=== PATIENT | male | born 1975 | race Caucasian/White ===

== ENCOUNTER 2019-02-04 13:17 | Inpatient (IN) | payer OTHER ==
--- NOTE | 2019-02-04 13:41 | PHYS DOC ---
Past History Past Medical History: Other Additional Past Medical Histor: cerebral palsy Smoking: Non-smoker Alcohol Use: None Drug Use: None Adult General Chief Complaint Chief Complaint: EARACHE/EAR PAIN HPI HPI Patient is a 43-year-old male presents with right ear pain. This started approximately a week ago. He finished up a course of azithromycin for this without any improvement. He was sent from the urgent care today due to wheezing and lower than usual oxygen saturation. Video Manager reports that he does have some increased work of breathing. 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 History is limited from the patient due to this. There has been no fever at home.[] Review of Systems Review of Systems Constitutional: Denies fever or chills [] Eyes: Denies change in visual acuity, redness, or eye pain [] HENT: Denies nasal congestion or sore throat [] Respiratory: Denies cough, wheezing is present,[] Cardiovascular: No chest pain or palpitations[] GI: Denies abdominal pain, nausea, vomiting, bloody stools or diarrhea [] : Denies dysuria or hematuria [] Musculoskeletal: Denies back pain or joint pain [] Integument: Denies rash or skin lesions [] Neurologic: Denies headache, focal weakness or sensory changes [] Endocrine: Denies polyuria or polydipsia [] All other systems were reviewed and found to be within normal limits, except as documented in this note. Physical Exam Physical Exam Constitutional: Well developed, well nourished, no acute distress, non-toxic appearance. [] HENT: Normocephalic, atraumatic, bilateral external ears normal, right TM has some fluid, no canal edema. Left TM and canal are normal. Oropharynx moist, no oral exudates, nose normal. [] Eyes: PERRLA, EOMI, conjunctiva normal, no discharge. [] Neck: Normal range of motion, no tenderness, supple, no stridor. [] Cardiovascular:Heart rate regular rhythm, no murmur [] Lungs & Thorax: Bilateral breath scattered wheezes, no retractions noted[] Abdomen: Bowel sounds normal, soft, no tenderness, no masses, no pulsatile mass es. [] Skin: Warm, dry, no erythema, no rash. [] Back: No tenderness, no CVA tenderness. [] Extremities: No tenderness, no cyanosis, no clubbing, ROM intact, no edema. [] Neurologic: Alert, no focal deficits noted. [] Psychologic: Affect normal per qa engineer, mood normal per qa engineer. [] EKG EKG [] Radiology/Procedures Radiology/Procedures PROCEDURE: PORTABLE CHEST 1V Single view portable chest COMPARISON: March 24, 2013 images without report FINDINGS: Very low lung volumes. This likely accentuates the cardiac silhouette size. Mixed infiltrates identified in both lungs, greatest in the right upper lobe. Small pleural effusions, greater on the right. No evidence of pneumothorax. Bones appear grossly intact. IMPRESSION: Bilateral pulmonary infiltrates and/or edema.[] Course & Med Decision Making Course & Med Decision Making Pertinent Labs and Imaging studies reviewed. (See chart for details) ED course: Patient arrived, was placed in bed, and tolerated exam well. After the return of the initial imaging showing multilobar pneumonia, IV access was es tablished, IV fluids and antibiotics were administered. Laboratory testing was sent for analysis. He was given IV fluids. Consultation was made with hospitalist service for admission. He was admitted in improved condition. Medical decision making: Patient with multilobar pneumonia post recent azithromycin therapy. Elevated lactate. Admitting to the ICU for further evaluation and treatment. With holding azithromycin for community-acquired pneumonia since he just finished a course of this.[] Dragon Disclaimer Dragon Disclaimer This electronic medical record was generated, in whole or in part, using a voice recognition dictation system. Departure Departure: Impression: Primary Impression: Pneumonia Additional Impressions: Elevated lactic acid level Cerebral palsy Disposition: ADMITTED INPATIENT Admitting Physician: Celia Leos Condition: IMPROVED Problem Qualifiers Primary Impression: Pneumonia Pneumonia type: due to unspecified organism Laterality: unspecified laterality Lung location: unspecified part of lung Qualified Codes: J18.9 - Pneumonia, unspecified organism Additional Impressions: Cerebral palsy Cerebral palsy type: unspecified type Qualified Codes: G80.9 - Cerebral palsy, unspecified ISABEL EUBANKS DO Feb 04, 2019 13:40
[2019-02-04] MEDS ORDERED: IPRATRPIUM/ALBUTEROL 0.5/2.5MG 3 ML NEBU. NEB ONE (13:45)
--- NOTE | 2019-02-04 14:00 | RAD ---
Single view portable chest COMPARISON: March 24, 2013 images without report FINDINGS: Very low lung volumes. This likely accentuates the cardiac silhouette size. Mixed infiltrates identified in both lungs, greatest in the right upper lobe. Small pleural effusions, greater on the right. No evidence of pneumothorax. Bones appear grossly intact. IMPRESSION: Bilateral pulmonary infiltrates and/or edema. Electronically signed by: Manuelito Johnson MD (02/04/2019 1:57 PM) [facility]
[2019-02-04] MEDS ORDERED: cefTRIAXone SODIUM 1 GM VIAL ONE (14:39)
[2019-02-04] MEDS ORDERED: IV NORMAL SALINE 50ML 50 ML ONE (14:39)
[2019-02-04 14:46] LABS: BASO # 0.1 x10^3/uL (0.0-0.2); BASO % 1 % (0-3); EOS # 0.2 x10^3/uL (0.0-0.7); EOS % 2 % (0-3); HEMOGLOBIN 16.1 g/dL (13.0-17.5); LYMPH # 3.8 x10^3/uL (1.0-4.8); LYMPH % 34 % (24-48); MEAN CORPUSCULAR HEMOGLOBIN 31 pg (25-35); MEAN CORPUSCULAR HGB CONC 34 g/dL (31-37); MEAN CORPUSCULAR VOLUME 93 fL (79-100); MONO % 9 % (0-9); NEUT % 54 % (31-73); PLATELET COUNT 347 x10^3/uL (140-400); RED BLOOD COUNT 5.17 x10^6/uL (4.30-5.70); RED CELL DISTRIBUTION WIDTH 13.3 % (11.5-14.5); WHITE BLOOD COUNT 11.1 x10^3/uL (4.0-11.0)
[2019-02-04 15:03] LABS: ALBUMIN 3.7 g/dL (3.4-5.0); ALBUMIN/GLOBULIN RATIO 0.8 (1.0-1.7); CALCIUM 9.5 mg/dL (8.5-10.1); CREATININE 0.7 mg/dL (0.7-1.3); GFR 124.3; POTASSIUM 4.7 mmol/L (3.5-5.1); TOTAL BILIRUBIN 0.2 mg/dL (0.2-1.0); TOTAL PROTEIN 8.2 g/dL (6.4-8.2)
[2019-02-04] MEDS: IV NORMAL SALINE 1,000ML 1,000 ML IV SCH ×2 (15:24→17:40)
[2019-02-04] MEDS ORDERED: IV NORMAL SALINE 1,000ML 1,000 ML IV ONE (15:30)
[2019-02-04] MEDS ORDERED: ONDANSETRON PF 4 MG/2 ML VIAL. IV PRN ×2 (15:30→17:15)
[2019-02-04] MEDS ORDERED: ACETAMINOPHEN 325 MG TABLET PO PRN ×2 (15:30→17:15)
[2019-02-04] MEDS ORDERED: PARO20TA99 PO (15:55)
[2019-02-04] MEDS ORDERED: BACL20TA PO (15:55)
[2019-02-04] MEDS ORDERED: ZOLP5TAB PO (15:55)
[2019-02-04] MEDS ORDERED: MULT1TAB52 PO (15:55)
[2019-02-04] MEDS ORDERED: TIZA4TAB8 PO (15:55)
[2019-02-04] MEDS ORDERED: CRAN200C2 PO (15:55)
[2019-02-04] MEDS ORDERED: CLON0.5T PO (15:55)
[2019-02-04] MEDS ORDERED: FISH12002 PO (15:55)
[2019-02-04] MEDS: IPRATRPIUM/ALBUTEROL 0.5/2.5MG 3 ML NEBU. NEB SCH ×3 (16:00→20:36)
[2019-02-04] MEDS ORDERED: METOCLOPRAMIDE HCL 10 MG/2 ML VIAL. IV PRN (17:15)
[2019-02-04] MEDS ORDERED: FLUT9.9S NS (17:18)
[2019-02-04] MEDS ORDERED: IPRATRPIUM/ALBUTEROL 0.5/2.5MG 3 ML NEBU. NEB SCH (17:30)
[2019-02-04 18:15] VITALS: BP 150/102
[2019-02-04 20:15] VITALS: BP 140/68
--- NOTE | 2019-02-04 20:21 | HP ---
ADMIT DATE: 02/04/2019 HISTORY OF PRESENT ILLNESS: The patient is a 43-year-old male patient who apparently presented with right ear pain. Pain started approximately a week ago, he finished a course of azithromycin for this without any improvement. He was sent from the urgent care today due to wheezing and lower than usual oxygen saturation. Job Hand reports that he does have some increased work of breathing. 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 History is limited from the patient due to this; however, there has been no documented fever at home. He apparently is at total care. He spends most of the day in his chair, but he sleeps at night time in his bed. He requires assistance with all his activities of daily living including feeding; however, he has ability to make his needs known. He is incontinent of bowel and bladder. I did ask his parents whether he has any episode of choking and they said, they have not noticed any of that. He was evaluated in the Emergency Room. His lab work showed, he has mild leukocytosis with a white cell count of 11,000. His chemistry showed that he has lactic acidosis with lactic acid of 2.8, slightly elevated liver enzymes with elevated AST, ALT. His chest x-ray showed that he has very low lung volume. This likely extended with the cardiac silhouette. He has mixed infiltrate identified in both lungs, greatest in the right upper lobe, small pleural effusions, greater on the right. No evidence of pneumothorax. Bones appear grossly intact. He has bilateral pulmonary infiltrate and/or edema. He was admitted and was given 2 liters of fluid and started on IV Rocephin and was continued on his other medications. PAST MEDICAL HISTORY: Significant for cerebral palsy. PAST SURGICAL HISTORY: Unremarkable. FAMILY HISTORY: Noncontributory. 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 He has total care for all his activities, his ADLs including feeding. He spends most of the time in his chair; however, he sleeps in his bed. He is able to make his needs known. However, he is incontinent mostly at night time. According to his mother, he does not smoke, drink alcohol or use any recreational drugs. REVIEW OF SYSTEMS: Unobtainable. The patient is nonverbal. ALLERGIES: HE IS ALLERGIC TO PENICILLIN. MEDICATIONS: He is currently on following medications: He is on tizanidine 4 mg twice a day, baclofen 20 mg twice a day, clonazepam 0.5 mg daily. He is on paroxetine 20 mg daily, Ambien 10 mg at bedtime, Flonase 2 sprays to each nostril daily, multivitamin 1 tablet once a day, cranberry extract 200 mg daily, fish oil, omega-3 1200 mg daily. PHYSICAL EXAMINATION: GENERAL: On examining him, he is somewhat restless ____ and somewhat tachypneic, but there is no pallor, jaundice, cyanosis, or thyromegaly. No jugular venous distension. No limb edema. VITAL SIGNS: His heart rate was 106, blood pressure was 150/100, temperature was 97.2, respiratory rate was 25, and oxygen saturation was 93% on room air. HEAD, EYES, NOSE AND THROAT: Normocephalic, atraumatic. NECK: Supple. HEART: Showed normal first and second heart sounds with no gallop, rub or murmur. CHEST: Equal bilateral reduced chest expansion, reduced air entry, vesicular sounds. I really could not appreciate any wheezing or crepitation or rhonchi. ABDOMEN: Distended, soft, nontender. No guarding or rigidity. No organomegaly. All hernial orifice intact. Bowel sounds normal. NEUROLOGIC: He has cerebral palsy. He is nonverbal. All his cranial nerves seem to be grossly intact. EXTREMITIES: He moves his extremities without difficulty, but he is unable to sit on his own and he is supported in his chair or his bed. He has a caregiver taking care of him 24 hours a day, seven days a week. LABORATORY DATA: On arrival showed a white cell count of 11,100, hemoglobin 16, hematocrit 48, MCV 93, and platelet count of 347,000 with normal manual differential. His chemistry showed a serum sodium 143, potassium 4.7, chloride 102, bicarbonate 34, anion gap of 7, BUN 16, creatinine 0.7, estimated GFR was 124 mL per minute. His glucose was 101. Lactic acid was 2.8, calcium was 9.5. Total bilirubin and alkaline phosphatase were normal. AST, ALT are elevated. His beta-natriuretic peptide was 16 and total protein was 8.2, albumin was 3.7 and his chest x-ray showed that he has very low lung volumes. This likely extenuate the cardiac silhouette, size, mixed infiltrate identified in both lungs, greatest in the right upper lobe, small pleural effusion, greater on the right. No evidence of pneumothorax. Bones appears grossly intact. The patient has pulmonary infiltrate and/or edema. PLAN: My plan is to continue to switch him to meropenem as well as Levaquin to cover possible aspiration pneumonia and anaerobes and atypicals as he came from home. MARCE LUNA MD DR: CYN/ana JOB#: [id number] / [id number]
[2019-02-04] MEDS: MEROPENEM 1 GM in IV NORMAL SALINE 100ML 100 ML IV SCH (21:28)
[2019-02-04] MEDS: LACTOBACILLUS RHAMNOSUS GG 1 CAPSULE. PO SCH (21:28)
[2019-02-04] MEDS: tiZANidine 4 MG TABLET. PO SCH (21:29)
[2019-02-04] MEDS: ZOLPIDEM 5 MG TABLET. PO SCH (21:29)
[2019-02-04 23:55] VITALS: BP 106/62
[2019-02-05 02:28] VITALS: BP 113/66
[2019-02-05] MEDS: MEROPENEM 1 GM in IV NORMAL SALINE 100ML 100 ML IV SCH ×3 (05:47→22:22)
[2019-02-05] MEDS: IPRATRPIUM/ALBUTEROL 0.5/2.5MG 3 ML NEBU. NEB SCH ×4 (05:57→20:03)
[2019-02-05 06:51] VITALS: BP 119/66
[2019-02-05 07:16] LABS: BASO # 0.1 x10^3/uL (0.0-0.2); BASO % 1 % (0-3); EOS # 0.1 x10^3/uL (0.0-0.7); EOS % 1 % (0-3); HEMATOCRIT 41.5 % (39.0-53.0); HEMOGLOBIN 13.9 g/dL (13.0-17.5); LYMPH % 26 % (24-48); MEAN CORPUSCULAR HEMOGLOBIN 31 pg (25-35); MEAN CORPUSCULAR HGB CONC 34 g/dL (31-37); MEAN CORPUSCULAR VOLUME 93 fL (79-100); MONO # 1.1 x10^3/uL (0.0-1.1); MONO % 9 % (0-9); NEUT # 7.2 x10^3uL (1.8-7.7); NEUT % 63 % (31-73); PLATELET COUNT 320 x10^3/uL (140-400); RED BLOOD COUNT 4.46 x10^6/uL (4.30-5.70); RED CELL DISTRIBUTION WIDTH 13.3 % (11.5-14.5); WHITE BLOOD COUNT 11.5 x10^3/uL (4.0-11.0)
[2019-02-05] MEDS: IV NORMAL SALINE 1,000ML 1,000 ML IV SCH (07:24)
[2019-02-05 07:31] LABS: ALBUMIN 3.2 g/dL (3.4-5.0); ALBUMIN/GLOBULIN RATIO 0.8 (1.0-1.7); CALCIUM 8.6 mg/dL (8.5-10.1); CREATININE 0.8 mg/dL (0.7-1.3); GFR 106.5; POTASSIUM 4.8 mmol/L (3.5-5.1); TOTAL BILIRUBIN 0.3 mg/dL (0.2-1.0)
[2019-02-05] MEDS: OMEGA-3 FATTY ACIDS/FISH OIL 1,000 MG CAPSULE. PO SCH (08:27)
[2019-02-05] MEDS: LACTOBACILLUS RHAMNOSUS GG 1 CAPSULE. PO SCH ×2 (08:27→20:26)
[2019-02-05] MEDS: clonazePAM 0.5 MG TABLET PO SCH (08:27)
[2019-02-05] MEDS: tiZANidine 4 MG TABLET. PO SCH ×3 (08:28→20:28)
[2019-02-05] MEDS: PARoxetine 20 MG TABLET PO SCH (08:28)
[2019-02-05] MEDS ORDERED: MULTIVITAMIN with MINERAL TABLET. PO SCH (09:00)
[2019-02-05] MEDS: BACLOFEN 20 MG TABLET PO SCH ×2 (11:08→14:49)
[2019-02-05] MEDS: FLUTICASONE 50MCG/NASAL SPRAY 16GM BOTTLE. NS SCH (11:08)
[2019-02-05 12:59] VITALS: BP 124/57
[2019-02-05] MEDS ORDERED: IV NORMAL SALINE 1,000ML 1,000 ML IV SCH (19:30)
[2019-02-05] MEDS: ZOLPIDEM 5 MG TABLET. PO SCH (20:27)
--- NOTE | 2019-02-06 01:10 | PN ---
DATE: 02/05/2019 SUBJECTIVE: The patient is resting, slightly propped up in bed, definitely much more comfortable than yesterday. He apparently did not sleep well last night, but has no more wheezing. Does not seem to be very tachypneic like yesterday. PHYSICAL EXAMINATION: GENERAL: When I saw him, he looked well and was clearly in no apparent respiratory distress. No pallor, jaundice, cyanosis or thyromegaly. No jugular venous distension. No lower limb edema. VITAL SIGNS: His heart rate was 94, blood pressure was 119/66, temperature was 97, respiratory rate was 20, and oxygen saturation was 97% on 2 liters of oxygen. His oxygen dropped down to 92 on room air and when he sleeps he desaturates down to 88%, most likely due to obstructive sleep apnea. HEAD, EYES, EARS, NOSE AND THROAT: Showed normocephalic, atraumatic. NECK: Supple. HEART: Showed normal first and second heart sounds. No gallop, rub or murmur. CHEST: Shows central trachea, equal bilateral expansion, air entry, vesicular sounds. I could not really appreciate any crepitation or rhonchi. ABDOMEN: Distended, soft, nontender. NEUROLOGIC: He is awake, alert. He is nonverbal; however, all his cranial nerves are intact. He moves his upper extremities to much good extent than lower extremities; however, he is mostly chair bound and bed bound. He is total care for all his activities of daily living. His intake over the last 24 hours was 1800, no output was recorded. LABORATORY DATA: Her lab work this morning showed a white cell count still slightly elevated at 11.5, hemoglobin was 13.9, hematocrit 41.5, MCV 93, and platelet count 320,000. His chemistry showed a serum sodium 145, potassium 4.8, chloride 106, bicarbonate 36, anion gap of 3, BUN 15, creatinine 0.8, estimated GFR was 160 mL per minute, his glucose was 102. His lactic acid is down to 1.8. Serum calcium was 8.6. Total bilirubin and alkaline phosphatase normal. AST, ALT slightly elevated. His total protein 7, albumin 3.2. ASSESSMENT: This is a 43-year-old male patient with community-acquired pneumonia. He is unfortunately ALLERGIC TO PENICILLIN and was treated recently with Zithromax for his right otitis media. PLAN: To continue with IV meropenem and Levaquin and so far, all his blood cultures are negative. We will continue with IV antibiotic for now. I will obviously sign out to Dr. Ventura tomorrow and he can decide as to when he is stable enough to be discharged to continue on oral antibiotic. MARCE LUNA MD DR: CYN/ana JOB#: [id number] / [id number]
[2019-02-06] MEDS: IPRATRPIUM/ALBUTEROL 0.5/2.5MG 3 ML NEBU. NEB SCH ×4 (05:32→20:50)
[2019-02-06] MEDS: MEROPENEM 1 GM in IV NORMAL SALINE 100ML 100 ML IV SCH ×3 (05:38→22:08)
[2019-02-06 05:45] VITALS: BP 112/82
[2019-02-06 06:21] LABS: BASO % 0 % (0-3); EOS # 0.2 x10^3/uL (0.0-0.7); EOS % 2 % (0-3); HEMATOCRIT 42.5 % (39.0-53.0); HEMOGLOBIN 14.3 g/dL (13.0-17.5); LYMPH # 2.5 x10^3/uL (1.0-4.8); LYMPH % 27 % (24-48); MEAN CORPUSCULAR HEMOGLOBIN 32 pg (25-35); MEAN CORPUSCULAR HGB CONC 34 g/dL (31-37); MEAN CORPUSCULAR VOLUME 94 fL (79-100); MONO # 0.8 x10^3/uL (0.0-1.1); MONO % 9 % (0-9); NEUT # 5.5 x10^3uL (1.8-7.7); NEUT % 61 % (31-73); PLATELET COUNT 303 x10^3/uL (140-400); RED BLOOD COUNT 4.51 x10^6/uL (4.30-5.70); RED CELL DISTRIBUTION WIDTH 13.6 % (11.5-14.5)
[2019-02-06 06:30] LABS: ALBUMIN 3.2 g/dL (3.4-5.0); ALBUMIN/GLOBULIN RATIO 0.8 (1.0-1.7); CALCIUM 8.6 mg/dL (8.5-10.1); CREATININE 0.7 mg/dL (0.7-1.3); GFR 124.3; MAGNESIUM 2.1 mg/dL (1.8-2.4); POTASSIUM 4.7 mmol/L (3.5-5.1); TOTAL BILIRUBIN 0.4 mg/dL (0.2-1.0); TOTAL PROTEIN 7.1 g/dL (6.4-8.2)
--- NOTE | 2019-02-06 07:46 | PDOC ---
SUBJECTIVE: CC: Wheezing Alert Nonverbal, pt grunts Electro Tech at bedside No obvious respiratory distress OBJECTIVE: Problems: Problems Medical Problems: (1) Cerebral palsy Status: Acute (2) Elevated lactic acid level Status: Acute (3) Pneumonia Status: Acute CXR noted, wbc 9000 Vital Signs: Vital Signs Date Time Temp Pulse Resp B/P (MAP) Pulse Ox O2 Delivery O2 Flow Rate FiO2 02/06/19 05:45 97.7 80 16 112/82 (92) 94 Nasal Cannula 2.0 I & O Intake and Output 02/06/19 06:59 Intake Total 2820 ml Output Total 2 ml Balance 2818 ml Intake Oral 1620 ml IV Total 1200 ml Output Urine Total 2 ml # Voids 5 # Bowel Movements 1 Labs: Laboratory Tests Test 02/04/19 14:22 02/04/19 17:57 02/04/19 18:00 02/05/19 06:35 White Blood Count 11.1 x10^3/uL (4.0-11.0) 11.5 x10^3/uL (4.0-11.0) Red Blood Count 5.17 x10^6/uL (4.30-5.70) 4.46 x10^6/uL (4.30-5.70) Hemoglobin 16.1 g/dL (13.0-17.5) 13.9 g/dL (13.0-17.5) Hematocrit 48.0 % (39.0-53.0) 41.5 % (39.0-53.0) Mean Corpuscular Volume 93 fL (79-100) 93 fL (79-100) Mean Corpuscular Hemoglobin 31 pg (25-35) 31 pg (25-35) Mean Corpuscular Hemoglobin Concent 34 g/dL (31-37) 34 g/dL (31-37) Red Cell Distribution Width 13.3 % (11.5-14.5) 13.3 % (11.5-14.5) Platelet Count 347 x10^3/uL (140-400) 320 x10^3/uL (140-400) Neutrophils (%) (Auto) 54 % (31-73) 63 % (31-73) Lymphocytes (%) (Auto) 34 % (24-48) 26 % (24-48) Monocytes (%) (Auto) 9 % (0-9) 9 % (0-9) Eosinophils (%) (Auto) 2 % (0-3) 1 % (0-3) Basophils (%) (Auto) 1 % (0-3) 1 % (0-3) Neutrophils # (Auto) 6.0 x10^3uL (1.8-7.7) 7.2 x10^3uL (1.8-7.7) Lymphocytes # (Auto) 3.8 x10^3/uL (1.0-4.8) 3.0 x10^3/uL (1.0-4.8) Monocytes # (Auto) 1.0 x10^3/uL (0.0-1.1) 1.1 x10^3/uL (0.0-1.1) Eosinophils # (Auto) 0.2 x10^3/uL (0.0-0.7) 0.1 x10^3/uL (0.0-0.7) Basophils # (Auto) 0.1 x10^3/uL (0.0-0.2) 0.1 x10^3/uL (0.0-0.2) Sodium Level 143 mmol/L (136-145) 145 mmol/L (136-145) Potassium Level 4.7 mmol/L (3.5-5.1) 4.8 mmol/L (3.5-5.1) Chloride Level 102 mmol/L (98-107) 106 mmol/L (98-107) Carbon Dioxide Level 34 mmol/L (21-32) 36 mmol/L (21-32) Anion Gap 7 (6-14) 3 (6-14) Blood Urea Nitrogen 16 mg/dL (8-26) 15 mg/dL (8-26) Creatinine 0.7 mg/dL (0.7-1.3) 0.8 mg/dL (0.7-1.3) Estimated GFR (Cockcroft-Gault) 124.3 106.5 BUN/Creatinine Ratio 23 (6-20) 19 (6-20) Glucose Level 101 mg/dL (70-99) 102 mg/dL (70-99) Lactic Acid Level 2.8 mmol/L (0.4-2.0) 1.8 mmol/L (0.4-2.0) Calcium Level 9.5 mg/dL (8.5-10.1) 8.6 mg/dL (8.5-10.1) Total Bilirubin 0.2 mg/dL (0.2-1.0) 0.3 mg/dL (0.2-1.0) Aspartate Amino Transf (AST/SGOT) 45 U/L (15-37) 43 U/L (15-37) Alanine Aminotransferase (ALT/SGPT) 95 U/L (16-63) 88 U/L (16-63) Alkaline Phosphatase 66 U/L (46-116) 52 U/L (46-116) Troponin I Quantitative < 0.017 ng/mL (0-0.055) PJ-Cpq-G-Type Natriuretic Peptide 16 pg/mL (0-124) Total Protein 8.2 g/dL (6.4-8.2) 7.0 g/dL (6.4-8.2) Albumin 3.7 g/dL (3.4-5.0) 3.2 g/dL (3.4-5.0) Albumin/Globulin Ratio 0.8 (1.0-1.7) 0.8 (1.0-1.7) Nasal Screen MRSA (PCR) Negative (Negative) Test 02/06/19 05:57 White Blood Count 9.0 x10^3/uL (4.0-11.0) Red Blood Count 4.51 x10^6/uL (4.30-5.70) Hemoglobin 14.3 g/dL (13.0-17.5) Hematocrit 42.5 % (39.0-53.0) Mean Corpuscular Volume 94 fL (79-100) Mean Corpuscular Hemoglobin 32 pg (25-35) Mean Corpuscular Hemoglobin Concent 34 g/dL (31-37) Red Cell Distribution Width 13.6 % (11.5-14.5) Platelet Count 303 x10^3/uL (140-400) Neutrophils (%) (Auto) 61 % (31-73) Lymphocytes (%) (Auto) 27 % (24-48) Monocytes (%) (Auto) 9 % (0-9) Eosinophils (%) (Auto) 2 % (0-3) Basophils (%) (Auto) 0 % (0-3) Neutrophils # (Auto) 5.5 x10^3uL (1.8-7.7) Lymphocytes # (Auto) 2.5 x10^3/uL (1.0-4.8) Monocytes # (Auto) 0.8 x10^3/uL (0.0-1.1) Eosinophils # (Auto) 0.2 x10^3/uL (0.0-0.7) Basophils # (Auto) 0.0 x10^3/uL (0.0-0.2) Sodium Level 144 mmol/L (136-145) Potassium Level 4.7 mmol/L (3.5-5.1) Chloride Level 106 mmol/L (98-107) Carbon Dioxide Level 36 mmol/L (21-32) Anion Gap 2 (6-14) Blood Urea Nitrogen 11 mg/dL (8-26) Creatinine 0.7 mg/dL (0.7-1.3) Estimated GFR (Cockcroft-Gault) 124.3 BUN/Creatinine Ratio 16 (6-20) Glucose Level 101 mg/dL (70-99) Calcium Level 8.6 mg/dL (8.5-10.1) Magnesium Level 2.1 mg/dL (1.8-2.4) Total Bilirubin 0.4 mg/dL (0.2-1.0) Aspartate Amino Transf (AST/SGOT) 35 U/L (15-37) Alanine Aminotransferase (ALT/SGPT) 86 U/L (16-63) Alkaline Phosphatase 56 U/L (46-116) Total Protein 7.1 g/dL (6.4-8.2) Albumin 3.2 g/dL (3.4-5.0) Albumin/Globulin Ratio 0.8 (1.0-1.7) Physical Exam: HEENT:PERRLA Neck supple Lungs: good breath sounds CV RRR Abdomen: Soft. no guarding nor rebound tenderness Ext: contractures Neuro: Spastic paraparesis, pt is non verbal ASSESSMENT: Community Acquired Pneumonia, improving Cerebral Palsy Associated Spastic Paraparesis Recent Otitis PLAN: Continue Abs Transfer to floor SHON We can DC IV fluids F/U CXR in AM CLINTON ABDI MD Feb 06, 2019 07:46
[2019-02-06] MEDS: clonazePAM 0.5 MG TABLET PO SCH (08:23)
[2019-02-06] MEDS: OMEGA-3 FATTY ACIDS/FISH OIL 1,000 MG CAPSULE. PO SCH (08:23)
[2019-02-06] MEDS: BACLOFEN 20 MG TABLET PO SCH ×2 (08:23→14:42)
[2019-02-06] MEDS: PARoxetine 20 MG TABLET PO SCH (08:23)
[2019-02-06] MEDS: FLUTICASONE 50MCG/NASAL SPRAY 16GM BOTTLE. NS SCH (08:56)
[2019-02-06] MEDS: tiZANidine 4 MG TABLET. PO SCH ×2 (14:42→20:23)
[2019-02-06] MEDS: ZOLPIDEM 5 MG TABLET. PO SCH (20:23)
[2019-02-07] MEDS: IPRATRPIUM/ALBUTEROL 0.5/2.5MG 3 ML NEBU. NEB SCH ×4 (04:39→20:03)
[2019-02-07] MEDS: MEROPENEM 1 GM in IV NORMAL SALINE 100ML 100 ML IV SCH ×3 (05:38→21:49)
[2019-02-07] MEDS: FLUTICASONE 50MCG/NASAL SPRAY 16GM BOTTLE. NS SCH (10:13)
[2019-02-07] MEDS: clonazePAM 0.5 MG TABLET PO SCH (10:13)
[2019-02-07] MEDS: PARoxetine 20 MG TABLET PO SCH (10:13)
[2019-02-07] MEDS: BACLOFEN 20 MG TABLET PO SCH ×2 (10:13→13:58)
[2019-02-07] MEDS: OMEGA-3 FATTY ACIDS/FISH OIL 1,000 MG CAPSULE. PO SCH (10:13)
--- NOTE | 2019-02-07 10:35 | RAD ---
EXAM: CHEST 1 VIEW. HISTORY: Pneumonia. COMPARISON: 02/04/2019. FINDINGS: A frontal view of the chest is obtained. The right hemidiaphragm is mildly elevated. There are no confluent infiltrates. There is no pneumothorax or pleural effusion. The heart is not enlarged. IMPRESSION: 1. No confluent infiltrates. Electronically signed by: Nini Thompson MD (02/07/2019 10:32 AM) [facility]
--- NOTE | 2019-02-07 12:35 | PDOC ---
SUBJECTIVE: Fevers Pt remains Nonverbal Production Associate and mom at bedside OBJECTIVE: Problems: Problems Medical Problems: (1) Cerebral palsy Status: Acute (2) Elevated lactic acid level Status: Acute (3) Pneumonia Status: Acute Positive blood cultures, one set. ID and sensitivity pending Vital Signs/I&O: Vital Signs Date Time Temp Pulse Resp B/P (MAP) Pulse Ox O2 Delivery O2 Flow Rate FiO2 02/07/19 10:03 97 Room Air 02/07/19 09:45 97.9 02/07/19 04:32 89 20 02/06/19 20:00 2.0 02/06/19 05:45 112/82 (92) I & O 02/06/19 02/06/19 02/07/19 14:59 22:59 06:59 Intake Total 300 ml 420 ml 150 ml Output Total 1 ml 2 ml Balance 300 ml 419 ml 148 ml Physical Exam: HEENT: PERRLA, Right ear canal clear. Drum visualized Neck supple Lungs: good breath sounds CV: RRR Abdomen: soft, no guarding Ext: spastic paraparesis Neuro: nonverbal ASSESSMENT: Pneumonia, improving Positive Blood cultures per Microbiology lab Cerebral Palsy Spastic Paraparesis Recent right Otitis PLAN: Continue IV Abs as ordered Await ID and sensitivity 0f blood cultures SHON Case discussed with caretakers and Mom at bedside CLINTON ABDI MD Feb 07, 2019 12:35
[2019-02-07] MEDS: tiZANidine 4 MG TABLET. PO SCH ×2 (13:58→20:37)
[2019-02-07] MEDS: ZOLPIDEM 5 MG TABLET. PO SCH (20:37)
[2019-02-08] MEDS: IPRATRPIUM/ALBUTEROL 0.5/2.5MG 3 ML NEBU. NEB SCH ×2 (04:58→10:11)
[2019-02-08] MEDS: MEROPENEM 1 GM in IV NORMAL SALINE 100ML 100 ML IV SCH (05:05)
[2019-02-08] MEDS: clonazePAM 0.5 MG TABLET PO SCH (08:39)
[2019-02-08] MEDS: PARoxetine 20 MG TABLET PO SCH (08:39)
[2019-02-08] MEDS: OMEGA-3 FATTY ACIDS/FISH OIL 1,000 MG CAPSULE. PO SCH (08:39)
[2019-02-08] MEDS: FLUTICASONE 50MCG/NASAL SPRAY 16GM BOTTLE. NS SCH (08:39)
[2019-02-08] MEDS: BACLOFEN 20 MG TABLET PO SCH (08:39)
[2019-02-08] MEDS ORDERED: LEVO500T59 PO (10:23)
--- NOTE | 2019-02-08 10:51 | DS ---
DATE OF DISCHARGE: 02/08/2019 ATTENDING PHYSICIAN: Celia Leos MD FINAL DIAGNOSES: 1. Community-acquired pneumonia. 2. Probable aspiration. 3. Bacteremia with 1 positive blood culture without sepsis syndrome. 4. Underlying spastic paraparesis. 5. Cerebral palsy. 6. Developmental delay. 7. The patient is nonambulatory. HISTORY AND PHYSICAL: This is a 43-year-old gentleman admitted from home. He started out with an otitis, did not improve. There is increased wheezing and chest x-ray on admission showed an infiltrate in both bases. He was admitted for further treatment and evaluation. PAST MEDICAL HISTORY: Significant for cerebral palsy, along with spastic paraparesis. PHYSICAL EXAMINATION: Please see the dictated note. PERTINENT LABORATORY AND X-RAY STUDIES: Initial chest x-ray on admission showed bilateral pulmonary infiltrate. Subsequent followup x-ray done on the fourth hospital day showed an improvement in clearing of the infiltrates on admission. Laboratory studies; Admission hemoglobin was 16.1 g/dL with white count of 11,000. Repeat blood work showed an improvement, white count was down to 9,000. Chemistry panel on admission showed a sodium 145, repeat was 144, potassium 4.7 mEq, nonfasting blood sugar 102, the creatinine is 0.8 mg/dL. Transaminases is slightly elevated with AST of 43 and ALT of 88, alkaline phosphatase and bilirubin were all within normal range. COURSE IN THE HOSPITAL: The patient was admitted to our Intensive Care Unit. He was given nebulizer therapy, supplemental oxygen and gradually weaned off. He received 5 full days of intravenous antibiotics consisting of Levaquin and meropenem. Followup x-ray showed clearing improvement of his infiltrate. The microbiology lab reported 1 blood culture 1 positive. At this time, unfortunately, at the time of discharge, the confirmation whether this is a contaminant or significant pathogen is still pending. I suspect based on his clinical response, is doing much better and back to baseline, that the 1 positive blood culture is a contaminant. In any event, I discussed the case with his mom, primary caregivers and their understanding. At this time, the patient is discharged home with 10 more days of Levaquin 500 mg p.o. daily and then stop. I recommended a followup visit with Dr. Aguilar in 1 week's time to recheck and get a followup x-ray at that time. His other home meds are unchanged. The patient should continue his baclofen 20 mg b.i.d., Klonopin as needed, cranberry extract, omega 3 fish oil, Flonase nasal spray 2 puffs daily, multivitamin 1 daily, Paxil 20 mg daily, Zanaflex 4 mg b.i.d. and Ambien 5 mg at bedtime. Again 10 more days of the Levaquin. The patient was then discharged from our hospital in stable condition with explicit directions on followup care, instructions given to caregiver and mom at bedside. CLINTON ABDI MD DR: LORNE/ana JOB#: [id number] / [id number] MARIELLA Tsang MD
== END 2019-02-08 10:34 | disposition home or self-care (01) | DRG 871 ==
LOC: ER 13:17 → ICU 15:24
PROVIDERS: ADMIT Internal Medicine; ATTEND Internal Medicine
DX: A41.9 Sepsis, unspecified organism (principal); J69.0 Pneumonitis due to inhalation of food and vomit; E87.2 Acidosis; H66.91 Otitis media, unspecified, right ear; G80.9 Cerebral palsy, unspecified; R32 Unspecified urinary incontinence; Z79.899 Other long term (current) drug therapy; Z88.0 Allergy status to penicillin
CPT/HCPCS: 36415; 71045; 80053; 83605; 83735; 83880; 84484; 85025; 87040; 87205; 87641; 94640; 96365; 96366; J0696; J1956; J2060; J2185; J7620; 99285-25; J7030

== ENCOUNTER → 2019-02-16 | Outpatient (CLI) | payer OTHER ==
[2019-02-06 05:45] VITALS: BP 112/82
[~2019-02-16] MED LIST: BACL20TA PO; CLON0.5T PO; CRAN200C2 PO; FISH12002 PO; FLUT9.9S NS; LEVO500T59 PO; MULT1TAB52 PO; PARO20TA99 PO; TIZA4TAB8 PO; ZOLP5TAB PO
--- NOTE | 2019-02-16 16:28 | RAD ---
AP and Lateral Views of the Chest 02/16/2019 3:49 PM Indication: Pneumonia Comparison: Chest radiograph February 07, 2019 Findings: Exam is limited by atypical positioning. Markedly low lung volumes appear to be present. Lateral view is particularly limited due to motion and patient's arms projecting over the thorax. Mild interstitial coarsening appears to be present. Left basilar obscuration may represent atelectasis. Infiltrate is not excluded. An acute osseous changes not identified. IMPRESSION: Limited study. Possible mild left basilar atelectasis or infiltrate. Consider follow-up exam to ensure resolution Electronically signed by: Rene Barroso MD (02/16/2019 4:25 PM) [id number]
== END | disposition home or self-care (01) ==
LOC: DXRAD 15:40
PROVIDERS: ATTEND Family Medicine
DX: J69.0 Pneumonitis due to inhalation of food and vomit (principal)
CPT/HCPCS: 71046

== ENCOUNTER → 2020-03-28 | Outpatient (CLI) | payer OTHER ==
[~2020-03-28] MED LIST changes: +MULT-445 PO; -MULT1TAB52 PO
--- NOTE | 2020-03-28 16:03 | RAD ---
Two-view chest dated 03/28/2020. Comparison made to 02/16/2019. CLINICAL INDICATION: Shortness of breath and cough. FINDINGS: AP and lateral views were performed with patient in wheelchair. Lung volumes are low, limiting evaluation. Heart and mediastinal contours are stable. There is patchy perihilar airspace disease, right greater than left. No definite pleural effusion or pneumothorax. IMPRESSION: 1. Perihilar airspace disease could be related to low lung volumes and vascular crowding. Pneumonia or low-grade edema not excluded. Electronically signed by: Manuelito Donnelly MD (03/28/2020 4:01 PM) [facility]
== END | disposition home or self-care (01) ==
LOC: RAD 15:35
PROVIDERS: ATTEND Physician Assistant Medical
DX: R06.02 Shortness of breath (principal)
CPT/HCPCS: 71046

== ENCOUNTER → 2020-04-01 | Outpatient (CLI) | payer OTHER ==
--- NOTE | 2020-04-01 14:40 | RAD ---
CT CHEST WO CONTRAST Indication: Abnormal chest x-ray Technique: Noncontrast CT imaging was performed of the chest, multiplanar reconstruction images submitted. One or more of the following individualized dose reduction techniques were utilized for this examination: 1. Automated exposure control 2. Adjustment of the mA and/or kV according to patient size 3. Use of iterative reconstruction technique. Comparison: March 28, 20202017 radiographs, no previous chest CT available Findings: There is fairly significant motion degradation. Heart is enlarged. There is some perihilar groundglass density greater on the right. There is some linear likely atelectasis right middle lobe. There is no pneumothorax or pleural effusion. There is trace pericardial fluid. Thoracic aortic caliber is within normal limits. There is cholelithiasis. There is degenerative change of the left glenohumeral articulation. Appearance of irregularity of the superior sternum is probably related to motion artifact rather than fracture. IMPRESSION: 1. Exam is degraded by motion. There is some perihilar groundglass density greater on the right which may be associated with edema such as related to left ventricular failure given the enlarged heart although could also be seen with viral infectious etiologies. 2. There is cholelithiasis. Electronically signed by: Dalton Pritchett MD (04/01/2020 2:37 PM) [id number]
== END | disposition home or self-care (01) ==
LOC: CT 11:45
PROVIDERS: ATTEND Physician Assistant Medical
DX: J98.4 Other disorders of lung (principal); K80.20 Calculus of gallbladder without cholecystitis without obstruction; I51.7 Cardiomegaly; R93.89 Abnormal findings on diagnostic imaging of other specified body structures
CPT/HCPCS: 71250

== ENCOUNTER 2020-04-14 14:36 | Inpatient (IN) | payer OTHER ==
[~2020-04-14] VITALS: Ht 160 cm; Wt 81.9 kg
--- NOTE | 2020-04-14 15:21 | PHYS DOC ---
Past History Past Medical History: Other Additional Past Medical Histor: cerebral palsy Past Medical History Limited secondary to patient nonverbal at baseline/cerebral palsy Past Surgical History: Other Past Surgical History Limited secondary to patient nonverbal at baseline/cerebral palsy Smoking: Non-smoker Alcohol Use: None Drug Use: None Social History Limited secondary to patient nonverbal at baseline/cerebral palsy General Adult EDM: Chief Complaint: SHORTNESS OF BREATH HPI: HPI: 44-year-old male presents with his caregiver with report of 2-week history of progressive shortness of air. Patient has cerebral palsy and is nonverbal at baseline. Caregiver reports over the past 2 weeks he has been seen by his PCP and started on "3 different antibiotics for presumed pneumonia ". Patient was recently treated with Levaquin for which he finished yesterday. Patient apparently also saw cardiology 2 days ago with concern for possible "large heart" and fluid on his lungs and started on diuretic. Caregiver reports today patient appeared to have increased work of breathing. Patient also subjectively appeared to have a fever and was sweaty. Caregiver denies known exposure to COVID-19. History of present illness limited secondary to patient nonverbal at baseline/cerebral palsy Review of Systems: Review of Systems: Respiratory: Reports cough and shortness of breath Review of systems limited secondary to nonverbal at baseline/cerebral palsy Allergies: Allergies: Allergies Coded Allergies Type Severity Reaction Last Updated Verified Penicillins Allergy Intermediate 02/05/19 Yes Physical Exam: PE: Constitutional: Well developed, increased work of breathing HENT: Normocephalic, atraumatic Eyes: Conjunctiva normal, no discharge Neck: Normal range of motion, supple Lungs & Thorax: Increased work of breathing, equal chest rise and fall Abdomen: Soft, no tenderness, no guarding/rebound tenderness Skin: Warm, dry, no rash Extremities: Contracted with poor muscle tone Neurologic: Alert but nonverbal (baseline), moves upper extremities Psychologic: Limited exam, judgment abnormal EKG: EKG: @1454 Sinus tachycardia at 102bpm, NO ST elevation, t wave inversion III and aVF, wandering baseline to V2-V3 Radiology/Procedures: Radiology/Procedures: PROCEDURE: PORTABLE CHEST 1V EXAM: PORTABLE CHEST 1V INDICATION: Reason: dyspnea / Spl. Instructions: / History: . TECHNIQUE: Single view COMPARISON: 03/28/2020 FINDINGS: Heart is moderately enlarged. Stable mediastinal prominence with mild bowing of the distal trachea rightward. There is no hilar or mediastinal mass. Lungs are hypoventilatory. They show improvement in bilateral perihilar interstitial opacities. There is no pleural effusion or pneumothorax. There are no significant osseous abnormalities. IMPRESSION: Cardiomegaly with improving findings of pulmonary vascular congestion. Electronically signed by: Lyndon Bowie MD (04/14/2020 3:40 PM) [facility] [place] Med Decision Making: Course & Med Decision Making Pertinent Labs and Imaging studies reviewed. (See chart for details) Nonverbal patient with pmh of cerebral palsy presents with report of increased work of breathing with recent diagnosis of CHF as well as recent treatment for presumed pneumonia. Patient noted to be hypoxic upon arrival. Improved with supplemental O2. Patient appears with increased fluid overload on CXR. EKG stable. Labs obtained and posted to chart. Troponin WNL. BNP elevated. Lasix therefore provided. ASA also given. Cannot fully exclude COVID given symptoms and history of low grade fever. COVID precautions in place upon patient's arrival. COVID testing also obtained and pending although less likely. Patient requiring admission for further evaluation and treatment. Discussed with Dr. Ventura (hospitalist) who is in agreement with admission. Discussed findings and plan with patient, who acknowledges understanding and agreement. COVID-19 CRITERIA: The patient was evaluated during the global COVID-19 pandemic, and that diagnosis was suspected/considered upon their initial presentation. Their evaluation, treatment and testing was consistent with current guidelines for patients who present with complaints or symptoms that may be related to COVID-19. Dragon Disclaimer: Dragon Disclaimer: This electronic medical record was generated, in whole or in part, using a voice recognition dictation system. Departure Departure: Impression: Primary Impression: Acute exacerbation of CHF (congestive heart failure) Qualified Codes: I50.9 - Heart failure, unspecified Additional Impressions: Hypoxia Failure of outpatient treatment History of cerebral palsy Disposition: ADMITTED INPATIENT Admitting Physician: Gabe Ventura Condition: GUARDED Referrals: MARIELLA PAL MD (PCP) Justification of Admission: Justification of Admission: Justification of Admission Dx: Yes Comments: CHF exacerbation, Hypoxia, Failed outpatient therapy, COVID PUI COVID-19 Assessment COVID-19 Patient Risks: Age 65 or older: No Sign of co-morbidity: Yes Exp to person + for COVID: No Exp to PUI: No Travel from affected area: No Lower respiratory symptoms: Yes Fever: Yes PPE Use: Full PPE with N95 mask or PAPR: Yes Critical Care Time Critical care time was 30 minutes which includes time at bedside, spent in discussion of patient's care with specialists and/or family members, with interpretation of laboratory and/or radiological studies and is exclusive of procedures. HERIBERTO SHANNON DO Apr 14, 2020 15:21
--- NOTE | 2020-04-14 15:37 | EKG ---
[address] [address] Test Date: 2020-04-14 Test Time: 14:54:41 Pat Name: JULIETA ARIAS Department: Room: Gender: M Musculoskeletal Physiotherapist: THADDEUS : 1975 Requested By: HERIBERTO SHANNON Order Number: [id number] Reading MD: Measurements Intervals [place] Rate: 102 P: 48 MO: 150 QRS: 122 QRSD: 82 T: -16 QT: 344 QTc: 453 Interpretive Statements SINUS TACHYCARDIA COMPLEX(ES) WITH ABERRANT INTRAVENTRICULAR CONDUCTION ABNORMAL RIGHT AXIS DEVIATION R-S TRANSITION ZONE IN V LEADS DISPLACED TO THE LEFT T ABNORMALITY IN INFERIOR LEADS ABNORMAL ECG RI6.02 No previous ECG available for comparison
[2020-04-14 15:41] LABS: BASO # 0.1 x10^3/uL (0.0-0.2); BASO % 1 % (0-3); EOS % 0 % (0-3); HEMATOCRIT 50.6 % (39.0-53.0); HEMOGLOBIN 15.3 g/dL (13.0-17.5); LYMPH # 2.3 x10^3/uL (1.0-4.8); LYMPH % 22 % (24-48); MEAN CORPUSCULAR HEMOGLOBIN 27 pg (25-35); MEAN CORPUSCULAR HGB CONC 30 g/dL (31-37); MEAN CORPUSCULAR VOLUME 89 fL (79-100); MONO # 1.4 x10^3/uL (0.0-1.1); MONO % 14 % (0-9); NEUT # 6.5 x10^3uL (1.8-7.7); NEUT % 63 % (31-73); PLATELET COUNT 275 x10^3/uL (140-400); RED BLOOD COUNT 5.69 x10^6/uL (4.30-5.70); WHITE BLOOD COUNT 10.4 x10^3/uL (4.0-11.0)
--- NOTE | 2020-04-14 15:42 | RAD ---
EXAM: PORTABLE CHEST 1V INDICATION: Reason: dyspnea / Spl. Instructions: / History: . TECHNIQUE: Single view COMPARISON: 03/28/2020 FINDINGS: Heart is moderately enlarged. Stable mediastinal prominence with mild bowing of the distal trachea rightward. There is no hilar or mediastinal mass. Lungs are hypoventilatory. They show improvement in bilateral perihilar interstitial opacities. There is no pleural effusion or pneumothorax. There are no significant osseous abnormalities. IMPRESSION: Cardiomegaly with improving findings of pulmonary vascular congestion. Electronically signed by: Lyndon Bowie MD (04/14/2020 3:40 PM) [facility] [place]
[2020-04-14 15:45] LABS: ANION GAP 0 (6-14); BLOOD UREA NITROGEN 15 mg/dL (8-26); BUN/CREATININE RATIO 15 (6-20); CALCIUM 8.4 mg/dL (8.5-10.1); CARBON DIOXIDE 42 mmol/L (21-32); CHLORIDE 102 mmol/L (98-107); GFR 81.9; GLUCOSE 117 mg/dL (70-99); POTASSIUM 4.5 mmol/L (3.5-5.1); SODIUM 144 mmol/L (136-145)
[2020-04-14 16:15] LABS: ALBUMIN 2.9 g/dL (3.4-5.0); ALBUMIN/GLOBULIN RATIO 0.7 (1.0-1.7); ALK PHOS 47 U/L (46-116); ALT (SGPT) 23 U/L (16-63); AST (SGOT) 21 U/L (15-37); TOTAL BILIRUBIN 0.6 mg/dL (0.2-1.0); TOTAL PROTEIN 6.8 g/dL (6.4-8.2)
[2020-04-14] MEDS ORDERED: FUROSEMIDE 40 MG/4 ML VIAL IVP ONE (17:00)
[2020-04-14 17:04] LABS: BACTERIA,URINE 0 /HPF (0-FEW); BILIRUBIN,URINE NEG (NEG); CLARITY,URINE HAZY; COLOR,URINE YELLOW; GLUCOSE,URINE NEG (NEG); NITRITE,URINE NEG (NEG); RBC,URINE OCC /HPF (0-2); SQUAMOUS EPITHELIAL CELL,UR OCC /LPF; UROBILINOGEN,URINE 0.2 mg/dL (0.2 mg/dL); WBC,URINE 0 /HPF (0-4)
[2020-04-14 17:05] LABS: HYALINE CASTS, URINE FEW /HPF
[2020-04-14] MEDS ORDERED: ONDANSETRON PF 4 MG/2 ML VIAL. IVP PRN (17:30)
[2020-04-14] MEDS ORDERED: ACETAMINOPHEN 325 MG TABLET PO PRN (17:30)
[2020-04-14] MEDS ORDERED: ASPIRIN CHEWABLE 81 MG TABLET. PO ONE (17:30)
[2020-04-14 18:52] LABS: % BANDS 1 % (0-9); % LYMPHS 23 % (24-48); % MONOS 17 % (0-10); % SEGS 59 % (35-66)
[2020-04-14 18:53] LABS: PLT ESTIMATE ADEQUATE (ADEQUATE)
[2020-04-14 19:14] VITALS: BP 130/88
[2020-04-14] MEDS ORDERED: ASCO100T4 PO (19:26)
[2020-04-14] MEDS ORDERED: HYDR25TA10 PO (19:26)
[2020-04-14] MEDS ORDERED: MAGN250T10 PO (19:26)
[2020-04-14 20:00] VITALS: BP 125/74
[2020-04-14] MEDS ORDERED: clonazePAM 0.5 MG TABLET ONE (20:26)
[2020-04-14] MEDS: clonazePAM 0.5 MG TABLET PO PRN (20:27)
[2020-04-14] MEDS: ZOLPIDEM 5 MG TABLET. PO PRN ×2 (20:27→20:28)
[2020-04-14] MEDS: tiZANidine 4 MG TABLET. PO SCH (20:28)
[2020-04-14] MEDS ORDERED: ALBUTEROL SULFATE 8GM INHALER. INH PRN (20:30)
[2020-04-14 21:00] VITALS: BP 120/66
[2020-04-14 22:00] VITALS: BP 120/72
[2020-04-14 23:00] VITALS: BP 123/72
[2020-04-15] VITALS (23 sets, daily range): BP systolic 91–141; BP diastolic 46–83
[2020-04-15 06:55] LABS: CALCIUM 8.3 mg/dL (8.5-10.1); GFR 81.9; POTASSIUM 4.2 mmol/L (3.5-5.1)
[2020-04-15] MEDS: FLUTICASONE 50MCG/NASAL SPRAY 16GM BOTTLE. NS SCH (08:51)
[2020-04-15] MEDS: MULTIVITAMIN with MINERAL TABLET. PO SCH (08:56)
[2020-04-15] MEDS: PARoxetine 20 MG TABLET PO SCH (08:56)
[2020-04-15] MEDS: tiZANidine 4 MG TABLET. PO SCH (08:56)
[2020-04-15] MEDS: MAGNESIUM OXIDE 400 MG TABLET PO SCH (08:56)
[2020-04-15] MEDS: BACLOFEN 10 MG TABLET PO SCH ×2 (08:57→14:00)
[2020-04-15] MEDS ORDERED: hydroCHLOROthiazide 25 MG TABLET PO SCH (09:00)
--- NOTE | 2020-04-15 09:25 | HP ---
ADMIT DATE: 04/15/2020 ATTENDING PHYSICIAN: Dr. Abdi. CHIEF COMPLAINT: Shortness of breath. HISTORY OF PRESENT ILLNESS: The patient is a 44-year-old gentleman, severely disabled. He has cerebral palsy since . He is nonverbal at baseline. His parents pay for real time analyst caregiver. The caregiver reports a 2-week history of progressive shortness of breath. He has had 3 different outpatient antibiotics for presumed pneumonia, most likely aspiration. He finished a course of Levaquin. Today, he is still febrile to 102.5 degrees Fahrenheit. COVID-19 swab has been ordered and is pending at this time. He saw Cardiology consultation several days ago. There was cardiac enlargement. He was supposed to have an echocardiogram done as an outpatient that has not been completed yet. He was started on a diuretic. He did respond to Lasix yesterday in the ED with a fairly good response. Today, he still requires supplemental oxygen. He is admitted then for acute on chronic congestive heart failure, which is new onset for this patient. PAST MEDICAL HISTORY: Significant for severe cerebral palsy. He is nonverbal. He has a cupola liner helper and he is cared for at home. His parents provided 24-hour care. He is said regularly, whether or not he aspirates is unclear. CURRENT MEDICINES: Reviewed from home. They include hydrochlorothiazide daily, baclofen, ascorbic acid, clonazepam, cranberry extract, fish oil, magnesium oxide, multivitamin, Paxil, Zanaflex and Ambien at bedtime. ALLERGIES: HE HAS ALLERGIES TO PENICILLIN, EXACT REACTION IS UNCLEAR. SOCIAL HISTORY: Nonsmoker, nondrinker. FAMILY HISTORY: His parents are alive in their late 70s. No further history is obtainable. REVIEW OF SYSTEMS: Obtained through the caregiver, he is unable to give us any review of systems. PHYSICAL EXAMINATION: GENERAL: When I saw him, this is a nonverbal gentleman who is at complete bed rest. INITIAL VITAL SIGNS: Today showed a temperature of 102.5 degrees Fahrenheit, pulse is 107 and regular, blood pressure 109/57, oxygen saturation 93%, requiring a face mask at 6 liters per facemask. It approximates 40% oxygen. HEENT: Head is without trauma. Pupils are reactive. Sclerae are nonicteric. The oropharynx is clear. NECK: Supple, no bruits identified. LUNGS: Shallow respirations with minimal rhonchi. CARDIOVASCULAR: Showed regular heart tones. No gallops. Peripheral pulses are palpable and full. ABDOMEN: Soft, scaphoid. No guarding or rebound tenderness. Bowel sounds were hypoactive. EXTREMITIES: Showed significant muscle atrophy. He is nonambulatory. He has severe developmental delay along with nonverbal behavior. LABORATORY DATA: Serial troponins were drawn. They are at 0.03, 0.02, 0.017. Whether these are actual ischemic or whether they are stress demand ischemia remains to be seen. His creatinine is 1.0 mg/dL. His bicarbonate level is indeed elevated at 52 millimoles per liter. Hemoglobin is 15.3 g with white count of 10,400. Chest x-ray shows cardiomegaly and vascular congestion. ASSESSMENT: 1. A 44-year-old gentleman with acute on chronic congestive heart failure, new in onset. 2. Coronary ischemia with elevated enzymes, whether this is stress demand or ischemic remains to be seen. 3. Cerebral palsy, profound mental retardation. 4. Nonverbal state. 5. Interestingly hypercarbia on chemistries suggesting a metabolic alkalosis, etiology is unclear. 6. Remote history of pneumonia. 7. Spasticity due to cerebral palsy. PLAN: 1. Admit to the ICU. 2. Supplemental oxygen. 3. COVID-19 swab was ordered. 4. I shall order blood and urine cultures. 5. Continue diuresis, Lasix. He has had a good response. 6. Serial chemistries. 7. Echocardiogram to be done on this admission. 8. Formal Cardiology consult. They are familiar with it. CLINTON ABDI MD DR: LORNE/ana JOB#: [id number] / [id number] MARIELLA Tsang MD
[2020-04-15] MEDS ORDERED: FUROSEMIDE 40 MG/4 ML VIAL IVP ONE ×2 (09:30→17:30)
[2020-04-15] MEDS: POTASSIUM CHLORIDE 20 MEQ TABLET.ER. PO SCH (09:30)
[2020-04-15] MEDS ORDERED: MAGNESIUM CITRATE 296 ML SOLUTION. PO ONE (09:30)
[2020-04-15] MEDS ORDERED: tiZANidine 4 MG TABLET. PO PRN (14:15)
--- NOTE | 2020-04-15 16:32 | PDOC2 ---
CONSULT DOS: DATE: 04/15/20 TIME: 16:26 Reason for Consult: Shortness of breath Referring Physician: Dr. Ventura Chief Complaint Shortness of breath Source: Chart review Problem List Problems Medical Problems: (1) Acute exacerbation of CHF (congestive heart failure) Status: Acute (2) Failure of outpatient treatment Status: Acute (3) History of cerebral palsy Status: Acute (4) Hypoxia Status: Acute History of Present Illness The patient is a 44-year-old male who has had cerebral palsy since . He is nonverbal and can requires [id number] care. He was seen in our office on 04/13/2024 probable diastolic heart failure and mild hypoxia. He was started on home oxygen and outpatient echocardiogram was ordered but has not been done yet. He was admitted through the emergency room for episodes of increasing shortness of breath and probable heart failure. He has responded well to diuresis. And a ppears more comfortable. He has no documented history of coronary disease, congestive heart failure or significant arrhythmias. Cardiovascular: HTN Pulmonary: Other (Episodes of hypoxia) Musculoskeletal: Other (Cerebral palsy) Past Surgical History: No pertinent history Family History: Hypertension Smoke: No ALCOHOL: none Current Medications Current Medications Furosemide (Lasix) 40 mg 1X ONCE IVP Last administered on 04/14/20at 17:03; Start 04/14/20 at 17:00; Stop 04/14/20 at 17:01; Status DC Ondansetron HCl (Zofran) 4 mg PRN Q4HRS PRN IVP NAUSEA/VOMITING; Start 04/14/20 at 17:30; Stop 04/15/20 at 17:29 Acetaminophen (Tylenol) 650 mg PRN Q4HRS PRN PO FEVER > 100.3'F Last administered on 04/15/20at 08:56; Start 04/14/20 at 17:30; Stop 04/15/20 at 17:29 Aspirin (Aspirin Chewable) 324 mg 1X ONCE PO Last administered on 04/14/20at 18:23; Start 04/14/20 at 17:30; Stop 04/14/20 at 17:31; Status DC Baclofen (Lioresal) 20 mg BID92 PO Last administered on 04/15/20at 08:57; Start 04/15/20 at 09:00 Clonazepam (KlonoPIN) 0.5 mg PRN TID PRN PO ANXIETY / AGITATION Last adm inistered on 04/14/20at 20:27; Start 04/15/20 at 09:00 Hydrochlorothiazide (Hydrodiuril) 25 mg DAILY PO ; Start 04/15/20 at 09:00; Stop 04/15/20 at 15:47; Status DC Paroxetine HCl (Paxil) 40 mg DAILY PO Last administered on 04/15/20at 08:56; Start 04/15/20 at 09:00 Tizanidine HCl (Zanaflex) 4 mg BID PO Last administered on 04/15/20at 08:56; Start 04/14/20 at 21:00; Stop 04/15/20 at 14:03; Status DC Ascorbic Acid (Vitamin C) 500 mg HS PO ; Start 04/15/20 at 21:00 Fluticasone Propionate (Flonase) 2 spray DAILY NS Last administered on 04/15/20at 08:51; Start 04/15/20 at 09:00 Magnesium Oxide (Magnesium Oxide) 200 mg DAILY PO Last administered on 04/15/20at 08:56; Start 04/15/20 at 09:00 Multivitamins/ Calcium (Thera-M Plus) 1 tab DAILY PO Last administered on 04/15/20at 08:56; Start 04/15/20 at 09:00 Zolpidem Tartrate (Ambien) 5 mg PRN QHS PRN PO INSOMNIA, MRX1 W/IN 2HRS Last administered on 04/14/20at 20:28; Start 04/14/20 at 20:30 Albuterol Sulfate (Ventolin Hfa Inhaler) 2 puff PRN Q6HRS PRN INH SOA/WHEEZING; Start 04/14/20 at 20:30 Clonazepam (KlonoPIN) 0.5 mg STK-MED ONCE .ROUTE ; Start 04/14/20 at 20:26; Stop 04/14/20 at 20:26; Status DC Furosemide (Lasix) 40 mg 1X ONCE IVP ; Start 04/15/20 at 09:30; Stop 04/15/20 at 09:31; Status DC Magnesium Citrate (Citroma) 296 ml 1X ONCE PO Last administered on 04/15/20at 09:30; Start 04/15/20 at 09:30; Stop 04/15/20 at 09:31; Status DC Potassium Chloride (Klor-Con) 20 meq DAILYWBKFT PO Last administered on 04/15/20at 09:30; Start 04/15/20 at 09:30 Tizanidine HCl (Zanaflex) 4 mg PRN BID PRN PO MUSCLE SPASMS; Start 04/15/20 at 14:15 Active Scripts Active Reported Magnesium (Magnesium Oxide) 250 Mg Tablet 250 Mg PO DAILY Vitamin C (Ascorbic Acid) 100 Mg Tablet 100 Mg PO HS Hydrochlorothiazide 25 Mg Tablet 25 Mg PO DAILY Flonase Allergy Relief (Fluticasone Propionate) 9.9 Ml [place].susp 2 Sprays NS DAILY Zanaflex (Tizanidine HCl) 4 Mg Tablet 4 Mg PO BID Paxil (Paroxetine Hcl) 20 Mg Tablet 1 Tab PO DAILY [place] 3-6-9 1,200 mg Softgel (Fish Oil/Borage/Flax/Om3,6,9#1) 1,200 Mg Capsule 1,200 Mg PO DAILY Multivitamins (Multivitamin) 1 Each Tablet 1 Tab PO DAILY Klonopin (Clonazepam) 0.5 Mg Tablet 1 Tab PO DAILY Cranberry (Cranberry Extract) 200 Mg Capsule 200 Mg PO DAILY Baclofen 20 Mg Tablet 1 Tab PO BID92 Ambien (Zolpidem Tartrate) 5 Mg Tablet 10 Mg PO PRN QHS PRN Allergies: Coded Allergies: Penicillins (Verified Allergy, Intermediate, 02/05/19) Review of System The patient is nonverbal. Physical Exam Patient is reasonably comfortable and is in no acute distress. General: mild distress Lungs: Other (Mildly decreased breath sounds) Heart: Regular rate Abdomen: Normal bowel sounds VITALS Vital Signs Date Time Temp Pulse Resp B/P (MAP) Pulse Ox O2 Delivery O2 Flow Rate FiO2 04/15/20 15:00 70 10 97/54 (68) 94 Simple Mask 6.0 04/15/20 12:00 99.1 Labs Laboratory Tests Test 04/14/20 15:00 04/14/20 15:25 04/14/20 15:34 04/14/20 18:30 White Blood Count 10.4 x10^3/uL (4.0-11.0) Red Blood Count 5.69 x10^6/uL (4.30-5.70) Hemoglobin 15.3 g/dL (13.0-17.5) Hematocrit 50.6 % (39.0-53.0) Mean Corpuscular Volume 89 fL (79-100) Mean Corpuscular Hemoglobin 27 pg (25-35) Mean Corpuscular Hemoglobin Concent 30 g/dL (31-37) Red Cell Distribution Width 17.0 % (11.5-14.5) Platelet Count 275 x10^3/uL (140-400) Neutrophils (%) (Auto) 63 % (31-73) Lymphocytes (%) (Auto) 22 % (24-48) Monocytes (%) (Auto) 14 % (0-9) Eosinophils (%) (Auto) 0 % (0-3) Basophils (%) (Auto) 1 % (0-3) Neutrophils # (Auto) 6.5 x10^3uL (1.8-7.7) Lymphocytes # (Auto) 2.3 x10^3/uL (1.0-4.8) Monocytes # (Auto) 1.4 x10^3/uL (0.0-1.1) Eosinophils # (Auto) 0.0 x10^3/uL (0.0-0.7) Basophils # (Auto) 0.1 x10^3/uL (0.0-0.2) Segmented Neutrophils % 59 % (35-66) Band Neutrophils % 1 % (0-9) Lymphocytes % 23 % (24-48) Monocytes % 17 % (0-10) Platelet Estimate Adequate (ADEQUATE) Sodium Level 144 mmol/L (136-145) Potassium Level 4.5 mmol/L (3.5-5.1) Chloride Level 102 mmol/L (98-107) Carbon Dioxide Level 42 mmol/L (21-32) Anion Gap 0 (6-14) Blood Urea Nitrogen 15 mg/dL (8-26) Creatinine 1.0 mg/dL (0.7-1.3) Estimated GFR (Cockcroft-Gault) 81.9 BUN/Creatinine Ratio 15 (6-20) Glucose Level 117 mg/dL (70-99) Lactic Acid Level 1.4 mmol/L (0.4-2.0) Calcium Level 8.4 mg/dL (8.5-10.1) Total Bilirubin 0.6 mg/dL (0.2-1.0) Aspartate Amino Transf (AST/SGOT) 21 U/L (15-37) Alanine Aminotransferase (ALT/SGPT) 23 U/L (16-63) Alkaline Phosphatase 47 U/L (46-116) Creatine Kinase 57 U/L (39-308) Creatine Kinase MB (Mass) 1.7 ng/mL (0.0-3.6) Creatine Kinase MB Relative Index % (0-4) Troponin I Quantitative 0.038 ng/mL (0-0.055) 0.022 ng/mL (0-0.055) QE-Lvy-A-Type Natriuretic Peptide 3501 pg/mL (0-124) Total Protein 6.8 g/dL (6.4-8.2) Albumin 2.9 g/dL (3.4-5.0) Albumin/Globulin Ratio 0.7 (1.0-1.7) Coronavirus (PCR) Not detected (Not Detected) Urine Collection Type U cath Urine Color Yellow Urine Clarity Hazy Urine pH 5.5 Urine Specific [place] 1.025 Urine Protein Neg (NEG-TRACE) Urine Glucose (UA) Neg mg/dL (NEG) Urine Ketones (Stick) Neg mg/dL (NEG) Urine Blood Neg (NEG) Urine Nitrite Neg (NEG) Urine Bilirubin Neg (NEG) Urine Urobilinogen Dipstick 0.2 mg/dL (0.2 mg/dL) Urine Leukocyte Esterase Neg (NEG) Urine RBC Occ /HPF (0-2) Urine WBC 0 /HPF (0-4) Urine Squamous Epithelial Cells Occ /LPF Urine Bacteria 0 /HPF (0-FEW) Urine Hyaline Casts Few /HPF Urine Mucus Mod /LPF Test 04/15/20 06:05 Sodium Level 144 mmol/L (136-145) Potassium Level 4.2 mmol/L (3.5-5.1) Chloride Level 100 mmol/L (98-107) Carbon Dioxide Level 52 mmol/L (21-32) Anion Gap -8 (6-14) Blood Urea Nitrogen 12 mg/dL (8-26) Creatinine 1.0 mg/dL (0.7-1.3) Estimated GFR (Cockcroft-Gault) 81.9 Glucose Level 107 mg/dL (70-99) Calcium Level 8.3 mg/dL (8.5-10.1) Troponin I Quantitative < 0.017 ng/mL (0-0.055) Images CXR. Cardiomegally, vascular infiltrates. Assessment/Plan 1. Cerebral palsy. Patient is nonverbal. Continue baseline treatment. 2. Febrile. Antibiotics as per the primary service. COVID testing has just returned and is negative. 3. Shortness of breath. History of hypoxia. Good diuresis with Lasix. Monitoring lab. Continue on oxygen. Echocardiogram has been ordered. Thank you for allowing us to participate in the care of your patient. SANJU STEVENSON MD Apr 15, 2020 16:31
[2020-04-15] MEDS ORDERED: FUROSEMIDE 40 MG/4 ML VIAL ONE (17:15)
[2020-04-15] MEDS: clonazePAM 0.5 MG TABLET PO PRN (20:39)
[2020-04-15] MEDS: ASCORBIC ACID 500 MG TABLET PO SCH (20:39)
[2020-04-15] MEDS: ZOLPIDEM 5 MG TABLET. PO PRN (20:39)
[2020-04-16] VITALS (18 sets, daily range): BP systolic 104–128; BP diastolic 59–79
[2020-04-16] MEDS: LORazepam 1 MG TABLET PO PRN (00:04)
[2020-04-16] MEDS: ACETAMINOPHEN 325 MG TABLET PO PRN (05:35)
[2020-04-16] MEDS: MAGNESIUM OXIDE 400 MG TABLET PO SCH (07:54)
[2020-04-16] MEDS: BACLOFEN 10 MG TABLET PO SCH (07:54)
[2020-04-16] MEDS: PARoxetine 20 MG TABLET PO SCH (07:54)
[2020-04-16] MEDS: MULTIVITAMIN with MINERAL TABLET. PO SCH (07:54)
[2020-04-16] MEDS: POTASSIUM CHLORIDE 20 MEQ TABLET.ER. PO SCH (07:55)
[2020-04-16] MEDS ORDERED: FUROSEMIDE 40 MG/4 ML VIAL IVP ONE (08:45)
[2020-04-16 09:29] LABS: CALCIUM 8.7 mg/dL (8.5-10.1); CREATININE 0.9 mg/dL (0.7-1.3); GFR 92.5
[2020-04-16] MEDS: FLUTICASONE 50MCG/NASAL SPRAY 16GM BOTTLE. NS SCH (09:29)
--- NOTE | 2020-04-16 09:57 | PN ---
DATE: 04/16/2020 ATTENDING PHYSICIAN: Dr. Abdi SUBJECTIVE: The patient is nonverbal. He is close back to baseline. He has a 24-hour sitter who has been staying with him. He is being fed solid foods. OBJECTIVE FINDINGS: VITAL SIGNS: Blood pressure today is 116/65, pulse is 95 and regular, temperature 98.2 degrees Fahrenheit, oxygen saturation 92% on face mask oxygen. HEENT: Head is without trauma. Pupils are reactive. Sclerae nonicteric. Oropharynx is clear. NECK: Supple, no bruits. LUNGS: Shallow respirations. CARDIOVASCULAR: Showed distant heart tones. No gallops. ABDOMEN: Soft, no guarding. EXTREMITIES: Showed significant muscle wasting. He is nonambulatory. NEUROLOGIC: There are no lateralizing signs or focal deficits. His COVID-19 coronavirus swab was reported as negative. LABORATORY DATA: Pertinent laboratory studies, as noted negative COVID-19 swab. His morning BMP is elevated. I questioned the etiology of his elevation of the carbon dioxide on the chemistry panel yesterday suggesting a metabolic alkalosis. We will see what his repeat lab work shows. ASSESSMENT: 1. A 44-year-old gentleman with acute on chronic diastolic heart failure, de tim in onset. 2. Profound debilitation due to cerebral palsy with developmental delay. 3. Febrile episode. Cultures are pending. 4. Acute on chronic respiratory failure. 5. Underlying cerebral palsy. PLAN: 1. Continue Lasix. He has responded well to diuresis. 2. Await the morning BMP results. 3. Echocardiogram which has been delayed, he had it scheduled initially as an outpatient when he saw the [facility] on 04/13. He was admitted on the and because of his COVID pending, echocardiogram tech did not come here on Saturday. Today is Saturday, and then Saturday, so most likely it will be accomplished by Saturday. 4. Serial chemistries. CLINTON ABDI MD DR: LORNE/ana JOB#: [id number] / [id number]
[2020-04-16 10:36] LABS: POTASSIUM 4.4 mmol/L (3.5-5.1)
[2020-04-16] MEDS ORDERED: FLUMAZENIL 0.5 MG/5 ML VIAL. IV ONE (11:30)
--- NOTE | 2020-04-16 12:06 | PDOC ---
PROGRESS NOTES Date of Service DOS: DATE: 04/16/20 TIME: 12:06 Diagnosis Problem Problems Medical Problems: (1) Acute exacerbation of CHF (congestive heart failure) Status: Acute (2) Failure of outpatient treatment Status: Acute (3) History of cerebral palsy Status: Acute (4) Hypoxia Status: Acute Assessment 1. Acute on chronic diastolic heart failure. Better compensated with Lasix. Continue current medical regimen. Check 2D echo to assess LV systolic function. 2. Hypertension: Controlled 3. Cerebral palsy Subjective Dyspnea improved. Objective Vital Signs Date Time Temp Pulse Resp B/P (MAP) Pulse Ox O2 Delivery O2 Flow Rate FiO2 04/16/20 12:00 Mask 6.0 04/16/20 11:52 98.7 92 20 120/70 (87) 97 Intake and Output 04/16/20 07:00 Intake Total 1260 ml Output Total 3025 ml Balance -1765 ml Intake Oral 1260 ml Output Urine Total 3025 ml # Bowel Movements 1 Abdomen: Soft Heart: Regular rate Extremities: No edema General: No acute distress HEENT: Atraumatic Lungs: Clear to auscultation Neck: Supple Psych/Mental Status: Mood NL Review of Relevant I have reviewed the following items fernandez (where applicable) has been applied. Labs Laboratory Tests Test 04/16/20 08:50 Sodium Level 142 mmol/L (136-145) Potassium Level 4.4 mmol/L (3.5-5.1) Chloride Level 97 mmol/L (98-107) L Carbon Dioxide Level 40 mmol/L (21-32) H Anion Gap 5 (6-14) L Blood Urea Nitrogen 12 mg/dL (8-26) Creatinine 0.9 mg/dL (0.7-1.3) Estimated GFR (Cockcroft-Gault) 92.5 Glucose Level 105 mg/dL (70-99) H Calcium Level 8.7 mg/dL (8.5-10.1) Microbiology 04/15/20 Urine Culture - Final, Complete 04/14/20 Blood Culture - Preliminary, Resulted NO GROWTH AFTER 1 DAY... Medications Current Medications Medications (Trade) Dose Ordered Sig/Brandan Route PRN Reason Start Time Stop Time Status Last Admin Dose Admin Ascorbic Acid (Vitamin C) 500 mg HS PO 04/15/20 21:00 04/15/20 20:39 Furosemide (Lasix) 40 mg 1X ONCE IVP 04/15/20 17:30 04/15/20 17:31 DC 04/15/20 17:30 Acetaminophen (Tylenol) 650 mg PRN Q6HRS PRN PO FEVER > 100.3'F 04/15/20 20:30 04/16/20 05:35 Lorazepam (Ativan) 1 mg PRN Q4HRS PRN PO ANXIETY / AGITATION 04/16/20 00:00 04/16/20 00:04 Furosemide (Lasix) 40 mg 1X ONCE IVP 04/16/20 08:45 04/16/20 08:48 DC 04/16/20 09:16 Flumazenil (Romazicon) 0.3 mg 1X ONCE IV 04/16/20 11:30 04/16/20 11:31 DC 04/16/20 11:36 Vitals/I & O Vital Signs Date Time Temp Pulse Resp B/P (MAP) Pulse Ox O2 Delivery O2 Flow Rate FiO2 04/16/20 12:00 Mask 6.0 04/16/20 11:52 98.7 92 20 120/70 (87) 97 I & O 04/15/20 04/15/20 04/16/20 15:00 23:00 07:00 Intake Total 480 ml 480 ml 300 ml Output Total 2275 ml 750 ml Balance 480 ml -1795 ml -450 ml Justification of Admission: Justification of Admission: Justification of Admission Dx: Yes ILIA BARRY MD Apr 16, 2020 12:06
[2020-04-16] MEDS: ASCORBIC ACID 500 MG TABLET PO SCH (20:06)
[2020-04-16] MEDS ORDERED: ACETAMINOPHEN 650 MG SUPP.RECT. PR PRN (20:30)
[2020-04-17] VITALS (24 sets, daily range): BP systolic 104–142; BP diastolic 63–110
[2020-04-17 06:57] LABS: CALCIUM 8.8 mg/dL (8.5-10.1); CREATININE 0.7 mg/dL (0.7-1.3); GFR 123.7; POTASSIUM 4.1 mmol/L (3.5-5.1)
[2020-04-17] MEDS: PARoxetine 20 MG TABLET PO SCH (08:22)
[2020-04-17] MEDS: MULTIVITAMIN with MINERAL TABLET. PO SCH (08:22)
[2020-04-17] MEDS: MAGNESIUM OXIDE 400 MG TABLET PO SCH (08:23)
[2020-04-17] MEDS: POTASSIUM CHLORIDE 20 MEQ TABLET.ER. PO SCH (08:23)
--- NOTE | 2020-04-17 09:13 | PN ---
DATE: 04/17/2020 ATTENDING PHYSICIAN: Dr. Abdi. SUBJECTIVE: The patient is nonverbal. He is not in any obvious distress. Cloth Presser had set him most of his breakfast. He is close to baseline. OBJECTIVE FINDINGS: His COVID-19 swab came back as negative. VITAL SIGNS: Blood pressure today is 119/79 mmHg, pulse is 92 and regular. He is afebrile. Oxygen saturation 93% on supplemental oxygen. HEENT: Head is without trauma. Pupils are reactive. Sclerae nonicteric. NECK: Supple. No stridor. LUNGS: Minimal rhonchi at the bases. Good air movement. CARDIOVASCULAR: Showed regular heart tones. No gallops. Peripheral pulses palpable. ABDOMEN: Obese, protuberant. No organomegaly. Bowel sounds are hypoactive. EXTREMITIES: Showed no edema or cyanosis. Significant muscle wasting. He is nonverbal. NEUROLOGIC: There are no focal neurologic signs. He opens his eyes and responds to some commands. LABORATORY STUDIES: His chemistry panel today showed a creatinine of 0.7 mg/dL, potassium is 4.1 mEq. The carbon dioxide level is 49, which I do not believe is accurate given that he has a negative anion gap. I do not think that is physiologically possible. ASSESSMENT: 1. A 44-year-old male with acute on chronic diastolic congestive heart failure, new onset. 2. Debilitation due to cerebral palsy. 3. Febrile episode. Cultures have been negative so far. 4. COVID-19 coronavirus ruled out. 5. Acute on chronic respiratory failure, improved. 6. Underlying cerebral palsy. PLAN: 1. Continue preload and afterload reduction. 2. Serial chemistries. 3. Echocardiogram. 4. Recommendations per Cardiology. Echo most likely will not be completed until tomorrow. CLINTON ABDI MD DR: LORNE/ana JOB#: [id number] / [id number]
[2020-04-17] MEDS: FLUTICASONE 50MCG/NASAL SPRAY 16GM BOTTLE. NS SCH (09:54)
[2020-04-17] MEDS ORDERED: FUROSEMIDE 40 MG/4 ML VIAL IVP ONE (12:00)
[2020-04-17] MEDS ORDERED: MAGNESIUM CITRATE 296 ML SOLUTION. PO PRN (12:00)
[2020-04-17] MEDS: LORazepam 1 MG TABLET PO PRN (14:00)
[2020-04-17] MEDS: ASCORBIC ACID 500 MG TABLET PO SCH (20:40)
[2020-04-17] MEDS: ZOLPIDEM 5 MG TABLET. PO PRN (20:40)
[2020-04-18] VITALS (24 sets, daily range): BP systolic 105–136; BP diastolic 63–87
[2020-04-18] MEDS: MAGNESIUM OXIDE 400 MG TABLET PO SCH (08:04)
[2020-04-18] MEDS: MULTIVITAMIN with MINERAL TABLET. PO SCH (08:04)
[2020-04-18] MEDS: PARoxetine 20 MG TABLET PO SCH (08:04)
[2020-04-18] MEDS: POTASSIUM CHLORIDE 20 MEQ TABLET.ER. PO SCH (08:05)
--- NOTE | 2020-04-18 08:12 | PDOC ---
CARDIO Progress Notes Date & Time Date of Service DATE: 04/18/20 TIME: 08:10 Time of Evaluation 08:10 Subjective Notes sleeping. on simple mask Vitals Vitals Vital Signs Date Time Temp Pulse Resp B/P (MAP) Pulse Ox O2 Delivery O2 Flow Rate FiO2 04/18/20 06:00 88 7 117/66 (83) 92 Simple Mask 6.0 04/18/20 04:00 97.8 Weight Weight [ ] Input and Output I.O. Intake and Output 04/18/20 07:00 Intake Total 420 ml Output Total 1300 ml Balance -880 ml Intake Oral 420 ml Output Urine Total 1300 ml Laboratory Labs Laboratory Tests Test 04/16/20 08:50 04/17/20 06:10 Sodium Level 142 mmol/L (136-145) 142 mmol/L (136-145) Potassium Level 4.4 mmol/L (3.5-5.1) 4.1 mmol/L (3.5-5.1) Chloride Level 97 mmol/L (98-107) 94 mmol/L (98-107) Carbon Dioxide Level 40 mmol/L (21-32) 49 mmol/L (21-32) Anion Gap 5 (6-14) -1 (6-14) Blood Urea Nitrogen 12 mg/dL (8-26) 12 mg/dL (8-26) Creatinine 0.9 mg/dL (0.7-1.3) 0.7 mg/dL (0.7-1.3) Estimated GFR (Cockcroft-Gault) 92.5 123.7 Glucose Level 105 mg/dL (70-99) 99 mg/dL (70-99) Calcium Level 8.7 mg/dL (8.5-10.1) 8.8 mg/dL (8.5-10.1) Microbiology Micro Microbiology 04/15/20 Urine Culture - Final, Complete 04/14/20 Blood Culture - Preliminary, Resulted NO GROWTH AFTER 3 DAYS... Physical Exams HEENT: Neck Supple W Full Motion Chest: Symmetric Lungs: Other (diminished ) Heart: RRR Abdomen: Soft N/T Extremities: No Edema Neurology: other (sleeping ) Assessment Assessment 1. Acute on chronic diastolic heart failure. Better compensated with Lasix. Continue current medical regimen. 2. Hypertension: Controlled 3. Cerebral palsy Recommendations Echo to assess LV systolic function Follow up CXR Additional diuresis with monitoring of labs Supportive care PAUL SAL APRN Apr 18, 2020 08:12
[2020-04-18] MEDS: FLUTICASONE 50MCG/NASAL SPRAY 16GM BOTTLE. NS SCH (09:00)
--- NOTE | 2020-04-18 09:32 | PN ---
DATE: 04/18/2020 ATTENDING PHYSICIAN: Dr. Abdi CHIEF COMPLAINT: Shortness of breath. SUBJECTIVE: The patient remains nonverbal. He is not in any obvious respiratory distress. OBJECTIVE FINDINGS: VITAL SIGNS: Blood pressure today is 117/66 mmHg, heart rate 88 and regular, temperature 97.8 degrees Fahrenheit, oxygen saturation still requires 6 liters nasal cannula, saturations 92%. HEENT: Head is without trauma. Pupils are reactive. Sclerae nonicteric. Oropharynx clear. NECK: Supple. No stridor. LUNGS: Shallow respirations, otherwise clear. CARDIOVASCULAR: Showed distant heart tones. No gallops. Peripheral pulses are palpable and full. ABDOMEN: Soft, obese, protuberant. No organomegaly. Bowel sounds were hypoactive. EXTREMITIES: Showed significant atrophy. He is nonambulatory. There are some contractures of the lower extremities. SKIN: Otherwise warm and dry. LABORATORY STUDIES: The chem B is pending. ASSESSMENT: 1. A 44-year-old male with acute on chronic diastolic heart failure, compensated with diuresis. 2. Significant debility, completely bedridden due to cerebral palsy. 3. Nonverbal and developmental delay. 4. COVID-19 coronavirus ruled out. 5. Febrile episode on admission, resolved. PLAN: 1. Still awaiting results of echocardiogram. 2. Follow up chest x-ray today. 3. Continue diuresis. 4. Echocardiogram. 5. Recommendations per Cardiology Services. CLINTON ABDI MD DR: LORNE/ana JOB#: [id number] / [id number]
--- NOTE | 2020-04-18 09:42 | RAD ---
INDICATION: Reason: SOA, hypoxia / Spl. Instructions: / History: COMPARISON: April 14, 2020 FINDINGS: Single view of chest obtained. Enlarged cardiomediastinal silhouette is again seen. Diffuse interstitial and groundglass opacities bilaterally. Air-filled dilatation of a structure in the upper abdomen which could be from dilated stomach. IMPRESSION: * Interstitial and groundglass opacities throughout the bilateral lungs which could be secondary to moderate pulmonary edema or multifocal infiltrate. * Enlarged cardiomediastinal silhouette. * There are some air-filled distention of the stomach partially visualized. Electronically signed by: Dallin Samson MD (04/18/2020 9:39 AM) [id number]
[2020-04-18] MEDS ORDERED: FUROSEMIDE 40 MG/4 ML VIAL IVP ONE (09:45)
[2020-04-18] MEDS: ZOLPIDEM 5 MG TABLET. PO PRN (20:40)
[2020-04-18] MEDS: ASCORBIC ACID 500 MG TABLET PO SCH (20:40)
[2020-04-19] VITALS (17 sets, daily range): BP systolic 108–128; BP diastolic 63–83
[2020-04-19 06:39] LABS: BASO % 1 % (0-3); EOS # 0.2 x10^3/uL (0.0-0.7); EOS % 3 % (0-3); HEMOGLOBIN 16.1 g/dL (13.0-17.5); LYMPH # 1.4 x10^3/uL (1.0-4.8); LYMPH % 19 % (24-48); MEAN CORPUSCULAR HEMOGLOBIN 27 pg (25-35); MEAN CORPUSCULAR HGB CONC 30 g/dL (31-37); MEAN CORPUSCULAR VOLUME 89 fL (79-100); MONO # 1.1 x10^3/uL (0.0-1.1); MONO % 15 % (0-9); NEUT # 4.8 x10^3uL (1.8-7.7); NEUT % 63 % (31-73); PLATELET COUNT 218 x10^3/uL (140-400); RED BLOOD COUNT 5.97 x10^6/uL (4.30-5.70); RED CELL DISTRIBUTION WIDTH 16.9 % (11.5-14.5); WHITE BLOOD COUNT 7.6 x10^3/uL (4.0-11.0)
[2020-04-19 06:55] LABS: ALBUMIN 2.9 g/dL (3.4-5.0); ALBUMIN/GLOBULIN RATIO 0.7 (1.0-1.7); CALCIUM 8.8 mg/dL (8.5-10.1); CREATININE 0.8 mg/dL (0.7-1.3); POTASSIUM 3.7 mmol/L (3.5-5.1); TOTAL BILIRUBIN 0.5 mg/dL (0.2-1.0); TOTAL PROTEIN 7.3 g/dL (6.4-8.2)
[2020-04-19] MEDS: FLUTICASONE 50MCG/NASAL SPRAY 16GM BOTTLE. NS SCH (08:21)
[2020-04-19] MEDS: PARoxetine 20 MG TABLET PO SCH (08:22)
[2020-04-19] MEDS: MULTIVITAMIN with MINERAL TABLET. PO SCH (08:22)
[2020-04-19] MEDS: MAGNESIUM OXIDE 400 MG TABLET PO SCH (08:22)
[2020-04-19] MEDS: POTASSIUM CHLORIDE 20 MEQ TABLET.ER. PO SCH (08:22)
--- NOTE | 2020-04-19 10:51 | PDOC ---
PAUL SAL THAI 04/19/20 1051: CARDIO Progress Notes Date & Time Date of Service DATE: 04/19/20 TIME: 10:50 Time of Evaluation 10:50 Subjective Notes SOA improved Vitals Vitals Vital Signs Date Time Temp Pulse Resp B/P (MAP) Pulse Ox O2 Delivery O2 Flow Rate FiO2 04/19/20 08:00 Mask 6.0 04/19/20 06:28 97.8 86 17 112/63 (79) 96 Weight Weight [ ] Input and Output I.O. Intake and Output 04/19/20 07:00 Intake Total 100 ml Output Total 1401 ml Balance -1301 ml Intake Oral 100 ml Output Urine Total 1400 ml Stool Total 1 ml Laboratory Labs Laboratory Tests Test 04/19/20 06:18 White Blood Count 7.6 x10^3/uL (4.0-11.0) Red Blood Count 5.97 x10^6/uL (4.30-5.70) Hemoglobin 16.1 g/dL (13.0-17.5) Hematocrit 53.0 % (39.0-53.0) Mean Corpuscular Volume 89 fL (79-100) Mean Corpuscular Hemoglobin 27 pg (25-35) Mean Corpuscular Hemoglobin Concent 30 g/dL (31-37) Red Cell Distribution Width 16.9 % (11.5-14.5) Platelet Count 218 x10^3/uL (140-400) Neutrophils (%) (Auto) 63 % (31-73) Lymphocytes (%) (Auto) 19 % (24-48) Monocytes (%) (Auto) 15 % (0-9) Eosinophils (%) (Auto) 3 % (0-3) Basophils (%) (Auto) 1 % (0-3) Neutrophils # (Auto) 4.8 x10^3uL (1.8-7.7) Lymphocytes # (Auto) 1.4 x10^3/uL (1.0-4.8) Monocytes # (Auto) 1.1 x10^3/uL (0.0-1.1) Eosinophils # (Auto) 0.2 x10^3/uL (0.0-0.7) Basophils # (Auto) 0.0 x10^3/uL (0.0-0.2) Sodium Level 146 mmol/L (136-145) Potassium Level 3.7 mmol/L (3.5-5.1) Chloride Level 100 mmol/L (98-107) Carbon Dioxide Level 53 mmol/L (21-32) Anion Gap -7 (6-14) Blood Urea Nitrogen 20 mg/dL (8-26) Creatinine 0.8 mg/dL (0.7-1.3) Estimated GFR (Cockcroft-Gault) 106.0 BUN/Creatinine Ratio 25 (6-20) Glucose Level 103 mg/dL (70-99) Calcium Level 8.8 mg/dL (8.5-10.1) Total Bilirubin 0.5 mg/dL (0.2-1.0) Aspartate Amino Transf (AST/SGOT) 27 U/L (15-37) Alanine Aminotransferase (ALT/SGPT) 31 U/L (16-63) Alkaline Phosphatase 52 U/L (46-116) Total Protein 7.3 g/dL (6.4-8.2) Albumin 2.9 g/dL (3.4-5.0) Albumin/Globulin Ratio 0.7 (1.0-1.7) Microbiology Micro Microbiology 04/15/20 Urine Culture - Final, Complete 04/14/20 Blood Culture - Preliminary, Resulted NO GROWTH AFTER 4 DAYS... Physical Exams HEENT: Neck Supple W Full Motion Chest: Symmetric Lungs: Other (diminished ) Heart: RRR Abdomen: Soft N/T Extremities: No Edema Neurology: alert, other (agitated ) Assessment Assessment 1. Acute on chronic diastolic heart failure. Better compensated with Lasix. CXR with pulm edema 2. Hypertension: Controlled 3. Cerebral palsy Recommendations Echo today to assess LV systolic function Give additional dose of Lasix Monitor Na level Supportive care ILIA BARRY MD 04/19/20 1429: CARDIO Progress Notes Assessment Assessment Patient seen and examined. Agree with METAL TUBE CUTTER's assessment and plan. Acute on chronic diastolic heart failure better compensated. Agree with another dose of IV Lasix today. PAUL SAL APRN Apr 19, 2020 10:51 ILIA BARRY MD Apr 19, 2020 14:29
[2020-04-19] MEDS ORDERED: FUROSEMIDE 20 MG/2 ML VIAL IVP ONE (11:15)
--- NOTE | 2020-04-19 12:44 | PN ---
DATE: 04/19/2020 ATTENDING PHYSICIAN: Dr. Abdi. SUBJECTIVE: The patient remains nonverbal. He is not in any obvious respiratory distress. OBJECTIVE FINDINGS: VITAL SIGNS: Blood pressure today is 112/63 mmHg, temperature 97.8 degrees Fahrenheit, pulse is 88 and regular, and oxygen saturation 96% on face mask. HEENT: Head is without trauma. Pupils are reactive. Sclerae nonicteric. Oropharynx is clear. NECK: Supple, no bruits. LUNGS: Coarse rhonchi with diminished breath sounds. CARDIOVASCULAR: Showed distant heart tones. No gallops. ABDOMEN: Soft, no guarding. EXTREMITIES: Show muscle wasting. No edema. NEUROLOGIC: Severely limited due to his underlying cerebral palsy. LABORATORY DATA: Potassium is 3.7 mEq, the sodium is 146 mEq per liter. CO2 is elevated at 53. Echocardiogram is pending. Chest x-ray yesterday shows pulmonary edema, lacking the clinical response. ASSESSMENT: 1. A 44-year-old male with acute on chronic heart failure, compensated. 2. Significant debility, bedridden due to cerebral palsy. 3. Nonverbal and developmental delay. 4. COVID-19 coronavirus infection ruled out. PLAN: 1. Await results of echocardiogram. 2. Continue diuresis. 3. Recommendation per Cardiology services. CLINTON ABDI MD DR: LORNE/ana JOB#: [id number] / [id number]
[2020-04-19] MEDS: ACETAMINOPHEN 325 MG TABLET PO PRN (14:00)
[2020-04-19] MEDS: ZOLPIDEM 5 MG TABLET. PO PRN (20:35)
[2020-04-19] MEDS: ASCORBIC ACID 500 MG TABLET PO SCH (20:35)
[2020-04-19] MEDS: BACLOFEN 10 MG TABLET PO PRN (20:35)
[2020-04-20] VITALS (14 sets, daily range): BP systolic 103–126; BP diastolic 61–91
[2020-04-20 07:01] LABS: ALBUMIN 2.9 g/dL (3.4-5.0); ALBUMIN/GLOBULIN RATIO 0.7 (1.0-1.7); CREATININE 0.8 mg/dL (0.7-1.3); POTASSIUM 3.9 mmol/L (3.5-5.1); TOTAL BILIRUBIN 0.6 mg/dL (0.2-1.0); TOTAL PROTEIN 7.3 g/dL (6.4-8.2)
[2020-04-20 07:22] LABS: BASO # 0.1 x10^3/uL (0.0-0.2); BASO % 1 % (0-3); EOS # 0.2 x10^3/uL (0.0-0.7); EOS % 2 % (0-3); HEMOGLOBIN 16.4 g/dL (13.0-17.5); LYMPH # 1.5 x10^3/uL (1.0-4.8); LYMPH % 20 % (24-48); MEAN CORPUSCULAR HEMOGLOBIN 27 pg (25-35); MEAN CORPUSCULAR HGB CONC 30 g/dL (31-37); MEAN CORPUSCULAR VOLUME 89 fL (79-100); MONO # 1.1 x10^3/uL (0.0-1.1); MONO % 14 % (0-9); NEUT # 4.6 x10^3uL (1.8-7.7); NEUT % 63 % (31-73); PLATELET COUNT 203 x10^3/uL (140-400); RED BLOOD COUNT 6.11 x10^6/uL (4.30-5.70); WHITE BLOOD COUNT 7.3 x10^3/uL (4.0-11.0)
--- NOTE | 2020-04-20 08:48 | CARD ---
MR#: [id number] Date of Study: 04/19/2020 Ordering Physician: CLINTON ABDI, Referring Physician: CLINTON ABDI, Tech: Demetria Salguero APPROVED REPORT EXAM: Two-dimensional and M-mode echocardiogram with Doppler and color Doppler. Other Information Quality : AverageHR: 99bpm Technically limited study due to combative patient INDICATION Dyspnea Congestive Heart Failure RISK FACTORS Hypertension 2D DIMENSIONS Left Atrium(2D)3.2 (1.6-4.0cm)IVSd1.0 (0.7-1.1cm) Aortic Root(2D)3.0 (2.0-3.7cm)LVDd5.0 (3.9-5.9cm) LVOT Diameter2.1 (1.8-2.4cm)PWd1.0 (0.7-1.1cm) LVDs3.3 (2.5-4.0cm)FS (%) 34.0 % SV74.5 mlLVEF(%)62.6 (>50%) Aortic Valve AoV Peak Teodoro.121.0cm/sAoV VTI19.5cm AO Peak GR.5.6mmHgLVOT Peak Teodoro.75.5cm/s LVOT VTI 13.16cmAO Mean GR.3mmHg ADIN (VMAX)2.11si3UHC (VTI)2.24cm2 Mitral Valve MV E Gnqzgcoe05.4cm/sMV E Peak Gr.4mmHg MV DECEL [id number] A Elhrdefu44.0cm/s MV E Mean Gr.2mmHgE/A Ratio0.8 Pulmonary Valve PV Peak Oocscyvs617.7cm/sPV Peak Grad.4mmHg LEFT VENTRICLE The left ventricle is normal size. There is normal left ventricular wall thickness. The left ventricu lar systolic function is mildly diminished. The Ejection Fraction is 45%. Abnormal septal motion prob ably from conduction abnormality. Transmitral Doppler flow pattern is Grade I-abnormal relaxation pat tern. RIGHT VENTRICLE The right ventricle is not well visualized. The right ventricular systolic function is normal. ATRIA The left atrium size is normal. The right atrium is borderline dilated. Interatrial septum not well v isualized. AORTIC VALVE The aortic valve is normal in structure and function. Doppler and Color Flow revealed no significant aortic regurgitation. There is no significant aortic valvular stenosis. MITRAL VALVE The mitral valve is normal in structure and function. There is no evidence of mitral valve prolapse. There is no mitral valve stenosis. Doppler and Color-flow revealed trace mitral regurgitation. TRICUSPID VALVE The tricuspid valve is normal in structure and function. Doppler and Color Flow revealed no tricuspid valve regurgitation noted. There is no tricuspid valve stenosis. PULMONIC VALVE The pulmonic valve is not well visualized. Doppler and Color Flow revealed no pulmonic valvular regur gitation. GREAT VESSELS The aortic root is normal in size. The IVC was not visualized. PERICARDIAL EFFUSION There is no evidence of significant pericardial effusion. Critical Notification Critical Value: No <Conclusion> The left ventricular systolic function is mildly diminished. The Ejection Fraction is 45%. Transmitral Doppler flow pattern is Grade I-abnormal relaxation pattern. Trace mitral regurgitation. There is no evidence of significant pericardial effusion. Signed by : Cesar Lopes, Electronically Approved : 04/20/2020 08:48:18
[2020-04-20] MEDS: FLUTICASONE 50MCG/NASAL SPRAY 16GM BOTTLE. NS SCH (09:00)
--- NOTE | 2020-04-20 09:12 | PDOC ---
CARDIO Progress Notes Date & Time Date of Service DATE: 04/20/20 TIME: 09:07 Time of Evaluation 09:07 Subjective Notes Awake, alert. no complaints Vitals Vitals Vital Signs Date Time Temp Pulse Resp B/P (MAP) Pulse Ox O2 Delivery O2 Flow Rate FiO2 04/20/20 06:00 73 7 107/61 (76) 90 Simple Mask 7.0 04/20/20 04:00 98.9 Weight Weight [ ] Input and Output I.O. Intake and Output 04/20/20 07:00 Intake Total 570 ml Output Total 775 ml Balance -205 ml Intake Oral 570 ml Output Urine Total 775 ml Laboratory Labs Laboratory Tests Test 04/19/20 06:18 04/20/20 06:13 White Blood Count 7.6 x10^3/uL (4.0-11.0) 7.3 x10^3/uL (4.0-11.0) Red Blood Count 5.97 x10^6/uL (4.30-5.70) 6.11 x10^6/uL (4.30-5.70) Hemoglobin 16.1 g/dL (13.0-17.5) 16.4 g/dL (13.0-17.5) Hematocrit 53.0 % (39.0-53.0) 54.0 % (39.0-53.0) Mean Corpuscular Volume 89 fL (79-100) 89 fL (79-100) Mean Corpuscular Hemoglobin 27 pg (25-35) 27 pg (25-35) Mean Corpuscular Hemoglobin Concent 30 g/dL (31-37) 30 g/dL (31-37) Red Cell Distribution Width 16.9 % (11.5-14.5) 17.0 % (11.5-14.5) Platelet Count 218 x10^3/uL (140-400) 203 x10^3/uL (140-400) Neutrophils (%) (Auto) 63 % (31-73) 63 % (31-73) Lymphocytes (%) (Auto) 19 % (24-48) 20 % (24-48) Monocytes (%) (Auto) 15 % (0-9) 14 % (0-9) Eosinophils (%) (Auto) 3 % (0-3) 2 % (0-3) Basophils (%) (Auto) 1 % (0-3) 1 % (0-3) Neutrophils # (Auto) 4.8 x10^3uL (1.8-7.7) 4.6 x10^3uL (1.8-7.7) Lymphocytes # (Auto) 1.4 x10^3/uL (1.0-4.8) 1.5 x10^3/uL (1.0-4.8) Monocytes # (Auto) 1.1 x10^3/uL (0.0-1.1) 1.1 x10^3/uL (0.0-1.1) Eosinophils # (Auto) 0.2 x10^3/uL (0.0-0.7) 0.2 x10^3/uL (0.0-0.7) Basophils # (Auto) 0.0 x10^3/uL (0.0-0.2) 0.1 x10^3/uL (0.0-0.2) Sodium Level 146 mmol/L (136-145) 147 mmol/L (136-145) Potassium Level 3.7 mmol/L (3.5-5.1) 3.9 mmol/L (3.5-5.1) Chloride Level 100 mmol/L (98-107) 102 mmol/L (98-107) Carbon Dioxide Level 53 mmol/L (21-32) 48 mmol/L (21-32) Anion Gap -7 (6-14) -3 (6-14) Blood Urea Nitrogen 20 mg/dL (8-26) 23 mg/dL (8-26) Creatinine 0.8 mg/dL (0.7-1.3) 0.8 mg/dL (0.7-1.3) Estimated GFR (Cockcroft-Gault) 106.0 106.0 BUN/Creatinine Ratio 25 (6-20) 29 (6-20) Glucose Level 103 mg/dL (70-99) 98 mg/dL (70-99) Calcium Level 8.8 mg/dL (8.5-10.1) 9.0 mg/dL (8.5-10.1) Total Bilirubin 0.5 mg/dL (0.2-1.0) 0.6 mg/dL (0.2-1.0) Aspartate Amino Transf (AST/SGOT) 27 U/L (15-37) 31 U/L (15-37) Alanine Aminotransferase (ALT/SGPT) 31 U/L (16-63) 33 U/L (16-63) Alkaline Phosphatase 52 U/L (46-116) 51 U/L (46-116) Total Protein 7.3 g/dL (6.4-8.2) 7.3 g/dL (6.4-8.2) Albumin 2.9 g/dL (3.4-5.0) 2.9 g/dL (3.4-5.0) Albumin/Globulin Ratio 0.7 (1.0-1.7) 0.7 (1.0-1.7) Procalcitonin < 0.10 ng/mL (0.00-0.10) Microbiology Micro Microbiology 04/15/20 Urine Culture - Final, Complete 04/14/20 Blood Culture - Final, Complete NO GROWTH AFTER 5 DAYS... Physical Exams HEENT: Neck Supple W Full Motion Chest: Symmetric Lungs: Other (diminished ) Heart: RRR Abdomen: Soft N/T Extremities: No Edema Neurology: alert, other (agitated ) Assessment Assessment 1. Acute on chronic systolic heart failure. Better compensated with Lasix. Echo with LVEF 45%. 2. Hypertension: low end 3. Cerebral palsy 4. ? Aspiration PNA. Recommendations Repeat CXR ABG if able to obtain Will start low-dose metoprolol given CMP Sill start with short acting. If BP tolerated, convert to long-acting Will hold off on ACEi for now as BP will likely not tolerate. Add oral Lasix Consider CT chest for further evaluation PAUL SAL APRN Apr 20, 2020 09:12
--- NOTE | 2020-04-20 09:30 | RAD ---
INDICATION: Reason: SOA, hypoxia / Spl. Instructions: / History: COMPARISON: April 18, 2020 FINDINGS: Single view of chest obtained. Enlarged cardiomediastinal silhouette. Interstitial and groundglass opacities bilaterally. IMPRESSION: * Repeat demonstration of interstitial and groundglass opacities bilaterally which can be seen with edema or infiltrate. * Enlarged cardiomediastinal silhouette is again seen. Electronically signed by: Dallin Samson MD (04/20/2020 9:27 AM) [id number]
[2020-04-20] MEDS: POTASSIUM CHLORIDE 20 MEQ TABLET.ER. PO SCH (11:18)
[2020-04-20] MEDS: MAGNESIUM OXIDE 400 MG TABLET PO SCH (11:21)
[2020-04-20] MEDS: PARoxetine 20 MG TABLET PO SCH (11:22)
[2020-04-20] MEDS: METOPROLOL TART IMMED RELEASE 25 MG TABLET PO SCH ×2 (11:23→20:38)
[2020-04-20] MEDS: MULTIVITAMIN with MINERAL TABLET. PO SCH (11:24)
[2020-04-20] MEDS: BACLOFEN 10 MG TABLET PO PRN (11:27)
[2020-04-20] MEDS: clonazePAM 0.5 MG TABLET PO PRN (13:08)
--- NOTE | 2020-04-20 15:05 | RAD ---
CT CHEST WO CONTRAST Indication: Possible pneumonia Technique: Noncontrast CT imaging was performed of the chest, multiplanar reconstruction images submitted. One or more of the following individualized dose reduction techniques were utilized for this examination: 1. Automated exposure control 2. Adjustment of the mA and/or kV according to patient size 3. Use of iterative reconstruction technique. Comparison: April 01, 2020 Findings: There is again motion degradation. There is probably somewhat increased right perihilar somewhat groundglass density infiltrate such as of the right upper lobe and superior right lower lobe also somewhat increased right lower lobe infiltrate more inferiorly. There is also probable somewhat increased mild lingular groundglass density, also degree of left lower lobe consolidation more centrally somewhat increased. There is no pleural fluid or pneumothorax. Heart is again enlarged. Thoracic aortic caliber is within normal limits. There is again cholelithiasis. There is again appearance of irregularity of the sternum although poorly evaluated due to motion. IMPRESSION: 1. There is persistent, overall somewhat increased infiltrate and/or edema bilaterally as described most notable of the right upper lobe, superior right lower lobe, and left lower lobe. 2. Heart is again enlarged. 3. There is cholelithiasis. 4. There is again appearance of irregularity of the sternum although findings likely accentuated by significant motion degradation. Electronically signed by: Dalton Pritchett MD (04/20/2020 3:02 PM) [facility]
[2020-04-20] MEDS ORDERED: VANCOMYCIN 1 GM in IV NORMAL SALINE 250ML 250 ML IV SCH (15:45)
[2020-04-20] MEDS ORDERED: VANCOMYCIN 2 GM in IV NORMAL SALINE 500ML 500 ML IV ONE (16:00)
[2020-04-20] MEDS ORDERED: VANCOMYCIN PER PHARMACY MC PRN (16:00)
[2020-04-20] MEDS: FUROSEMIDE 40 MG TABLET PO SCH (17:59)
[2020-04-20] MEDS ORDERED: OLANZapine IM 10 MG VIAL. IM ONE (19:15)
[2020-04-20] MEDS ORDERED: HALOPERIDOL LACT 5 MG/ML VIAL. IVP ONE (19:25)
[2020-04-20] MEDS: HYDROCORTISONE 1% TOPICAL CREAM 30GM TUBE. TP SCH (20:37)
[2020-04-20] MEDS: ASCORBIC ACID 500 MG TABLET PO SCH (20:37)
[2020-04-20] MEDS: MEROPENEM 1 GM in IV NORMAL SALINE 100ML 100 ML IV SCH (20:39)
[2020-04-20] MEDS ORDERED: METOPROLOL TART IMMED RELEASE 25 MG TABLET PO SCH (21:00)
--- NOTE | 2020-04-20 21:20 | PN ---
DATE: 04/20/2020 SUBJECTIVE: The patient is resting, propped up in bed, somewhat restless. His oxygen requirement is higher and is now on 6 liters by simple mask, as he does not tolerate the nasal cannula. His chest x-ray showed that he has consistently worsening infiltrate. This could be interstitial and ground glass opacities bilaterally, which can be seen with edema or infiltrate, has enlarged cardiomediastinal silhouette seen again. We did do a CT scan of the chest without contrast, which showed that the patient has been resistant. Overall, somewhat increased infiltrate and/or edema bilaterally as described, most notable in the right upper lobe and superior right lower lobe and left lower lobe. Heart again is enlarged. There is cholelithiasis. There is again appearance of irregularity at the sternum, although finding likely accentuated by significant motion degradation. PHYSICAL EXAMINATION: GENERAL: When I examined him, there is no pallor, jaundice, cyanosis or thyromegaly. No jugular venous distention. No limb edema. VITAL SIGNS: Her heart rate was 100, blood pressure was 106/61, temperature was 98.1, respiratory rate 24 and oxygen saturation was 89% on 6 liters by simple mask. HEAD, EYES, NOSE, THROAT: Normocephalic, atraumatic. NECK: Supple. CARDIAC: Normal first and second heart sounds. No gallop or murmur. CHEST: Shows central trachea, equal bilateral chest expansion, air entry, vesicular sounds. No crepitation or rhonchi anteriorly. He does have crepitation bilaterally posteriorly. ABDOMEN: Distended, soft, nontender. NEUROLOGIC: He is nonverbal with probably cerebral palsy with fixed flexion contraction of both upper and lower extremities. His intake was 600, output was 1400. LABORATORY DATA: His lab work this morning showed a white cell count 7300, hemoglobin 16, hematocrit 54, MCV 89 and platelet count 203,000. His chemistry showed serum sodium of 147, potassium 3.9, chloride 102, bicarbonate 48, anion gap of 3, BUN 23, creatinine 0.8. Estimated GFR was 106. Glucose was 98, calcium was 9. Total bilirubin; AST, ALT, alkaline phosphatase were normal. His total protein was 7.3, albumin was 2.9. His carbon dioxide must be like 80 or somewhere there. ASSESSMENT: 1. Acute on chronic systolic congestive heart failure, better compensated with IV Lasix. His echocardiogram showed left ventricular systolic ejection fraction of 45%. 2. Hypertension. 3. Cerebral palsy. 4. The patient likely has aspiration pneumonia. 5. He probably has chronic hypercapnic respiratory failure given the elevated bicarbonate. CT scan of the chest confirmed that he is probably aspirating. I would recommend doing blood gases if at all possible. MARCE LUNA MD DR: CYN/ana JOB#: [id number] / [id number]
[2020-04-21] VITALS (10 sets, daily range): BP systolic 93–106; BP diastolic 53–72
[2020-04-21] MEDS ORDERED: VANCOMYCIN 1.25 GM in IV NORMAL SALINE 250ML 250 ML IV SCH (04:00)
[2020-04-21] MEDS: MEROPENEM 1 GM in IV NORMAL SALINE 100ML 100 ML IV SCH ×2 (06:04→14:17)
[2020-04-21 07:33] LABS: BASO # 0.1 x10^3/uL (0.0-0.2); BASO % 1 % (0-3); EOS # 0.2 x10^3/uL (0.0-0.7); EOS % 2 % (0-3); HEMATOCRIT 52.4 % (39.0-53.0); HEMOGLOBIN 15.8 g/dL (13.0-17.5); LYMPH # 1.6 x10^3/uL (1.0-4.8); LYMPH % 23 % (24-48); MEAN CORPUSCULAR HEMOGLOBIN 27 pg (25-35); MEAN CORPUSCULAR HGB CONC 30 g/dL (31-37); MEAN CORPUSCULAR VOLUME 89 fL (79-100); MONO % 15 % (0-9); NEUT # 4.2 x10^3uL (1.8-7.7); NEUT % 60 % (31-73); PLATELET COUNT 188 x10^3/uL (140-400); RED BLOOD COUNT 5.87 x10^6/uL (4.30-5.70); RED CELL DISTRIBUTION WIDTH 17.1 % (11.5-14.5); WHITE BLOOD COUNT 7.1 x10^3/uL (4.0-11.0)
[2020-04-21 08:00] LABS: ALBUMIN 2.7 g/dL (3.4-5.0); ALBUMIN/GLOBULIN RATIO 0.6 (1.0-1.7); ALK PHOS 48 U/L (46-116); ALT (SGPT) 33 U/L (16-63); AST (SGOT) 24 U/L (15-37); BLOOD UREA NITROGEN 23 mg/dL (8-26); BUN/CREATININE RATIO 26 (6-20); CALCIUM 8.4 mg/dL (8.5-10.1); CHLORIDE 105 mmol/L (98-107); CREATININE 0.9 mg/dL (0.7-1.3); GFR 92.5; GLUCOSE 100 mg/dL (70-99); POTASSIUM 4.2 mmol/L (3.5-5.1); SODIUM 147 mmol/L (136-145); TOTAL BILIRUBIN 0.5 mg/dL (0.2-1.0)
[2020-04-21] MEDS: MULTIVITAMIN with MINERAL TABLET. PO SCH (08:12)
[2020-04-21] MEDS: FUROSEMIDE 40 MG TABLET PO SCH (08:12)
[2020-04-21] MEDS: METOPROLOL TART IMMED RELEASE 25 MG TABLET PO SCH (08:13)
[2020-04-21] MEDS: POTASSIUM CHLORIDE 20 MEQ TABLET.ER. PO SCH (08:13)
[2020-04-21] MEDS: PARoxetine 20 MG TABLET PO SCH (08:13)
[2020-04-21] MEDS: MAGNESIUM OXIDE 400 MG TABLET PO SCH (08:13)
[2020-04-21] MEDS: HYDROCORTISONE 1% TOPICAL CREAM 30GM TUBE. TP SCH ×2 (08:14→14:17)
[2020-04-21] MEDS: FLUTICASONE 50MCG/NASAL SPRAY 16GM BOTTLE. NS SCH (08:14)
[2020-04-21] MEDS: BACLOFEN 10 MG TABLET PO PRN (08:33)
[2020-04-21] MEDS ORDERED: LACTOBACILLUS RHAMNOSUS GG 1 CAPSULE. PO SCH (09:00)
--- NOTE | 2020-04-21 09:36 | PDOC ---
CARDIO Progress Notes Date & Time Date of Service DATE: 04/21/20 TIME: 09:30 Time of Evaluation 09:30 Subjective Notes resting in bed with caregiver at bedside Vitals Vitals Vital Signs Date Time Temp Pulse Resp B/P (MAP) Pulse Ox O2 Delivery O2 Flow Rate FiO2 04/21/20 08:13 88 104/63 04/21/20 08:00 Mask 6.0 04/21/20 05:00 16 91 04/20/20 20:05 98.2 Weight Weight [ ] Input and Output I.O. Intake and Output 04/21/20 07:00 Intake Total 1970 ml Output Total 300 ml Balance 1670 ml Intake Oral 1120 ml IV Total 850 ml Output Urine Total 300 ml Laboratory Labs Laboratory Tests Test 04/20/20 06:00 04/20/20 06:13 04/21/20 07:25 HH-Hmi-H-Type Natriuretic Peptide 195 pg/mL (0-124) White Blood Count 7.3 x10^3/uL (4.0-11.0) 7.1 x10^3/uL (4.0-11.0) Red Blood Count 6.11 x10^6/uL (4.30-5.70) 5.87 x10^6/uL (4.30-5.70) Hemoglobin 16.4 g/dL (13.0-17.5) 15.8 g/dL (13.0-17.5) Hematocrit 54.0 % (39.0-53.0) 52.4 % (39.0-53.0) Mean Corpuscular Volume 89 fL (79-100) 89 fL (79-100) Mean Corpuscular Hemoglobin 27 pg (25-35) 27 pg (25-35) Mean Corpuscular Hemoglobin Concent 30 g/dL (31-37) 30 g/dL (31-37) Red Cell Distribution Width 17.0 % (11.5-14.5) 17.1 % (11.5-14.5) Platelet Count 203 x10^3/uL (140-400) 188 x10^3/uL (140-400) Neutrophils (%) (Auto) 63 % (31-73) 60 % (31-73) Lymphocytes (%) (Auto) 20 % (24-48) 23 % (24-48) Monocytes (%) (Auto) 14 % (0-9) 15 % (0-9) Eosinophils (%) (Auto) 2 % (0-3) 2 % (0-3) Basophils (%) (Auto) 1 % (0-3) 1 % (0-3) Neutrophils # (Auto) 4.6 x10^3uL (1.8-7.7) 4.2 x10^3uL (1.8-7.7) Lymphocytes # (Auto) 1.5 x10^3/uL (1.0-4.8) 1.6 x10^3/uL (1.0-4.8) Monocytes # (Auto) 1.1 x10^3/uL (0.0-1.1) 1.0 x10^3/uL (0.0-1.1) Eosinophils # (Auto) 0.2 x10^3/uL (0.0-0.7) 0.2 x10^3/uL (0.0-0.7) Basophils # (Auto) 0.1 x10^3/uL (0.0-0.2) 0.1 x10^3/uL (0.0-0.2) Sodium Level 147 mmol/L (136-145) 147 mmol/L (136-145) Potassium Level 3.9 mmol/L (3.5-5.1) 4.2 mmol/L (3.5-5.1) Chloride Level 102 mmol/L (98-107) 105 mmol/L (98-107) Carbon Dioxide Level 48 mmol/L (21-32) 46 mmol/L (21-32) Anion Gap -3 (6-14) -4 (6-14) Blood Urea Nitrogen 23 mg/dL (8-26) 23 mg/dL (8-26) Creatinine 0.8 mg/dL (0.7-1.3) 0.9 mg/dL (0.7-1.3) Estimated GFR (Cockcroft-Gault) 106.0 92.5 BUN/Creatinine Ratio 29 (6-20) 26 (6-20) Glucose Level 98 mg/dL (70-99) 100 mg/dL (70-99) Calcium Level 9.0 mg/dL (8.5-10.1) 8.4 mg/dL (8.5-10.1) Total Bilirubin 0.6 mg/dL (0.2-1.0) 0.5 mg/dL (0.2-1.0) Aspartate Amino Transf (AST/SGOT) 31 U/L (15-37) 24 U/L (15-37) Alanine Aminotransferase (ALT/SGPT) 33 U/L (16-63) 33 U/L (16-63) Alkaline Phosphatase 51 U/L (46-116) 48 U/L (46-116) Total Protein 7.3 g/dL (6.4-8.2) 7.0 g/dL (6.4-8.2) Albumin 2.9 g/dL (3.4-5.0) 2.7 g/dL (3.4-5.0) Albumin/Globulin Ratio 0.7 (1.0-1.7) 0.6 (1.0-1.7) Microbiology Micro Microbiology 04/15/20 Urine Culture - Final, Complete 04/14/20 Blood Culture - Final, Complete NO GROWTH AFTER 5 DAYS... Physical Exams HEENT: Neck Supple W Full Motion Chest: Symmetric Lungs: Other (diminished ) Heart: RRR Abdomen: Soft N/T Extremities: No Edema Neurology: alert Assessment Assessment 1. Acute on chronic systolic heart failure. Better compensated with Lasix. Echo with LVEF 45%. 2. Hypertension: low end 3. Cerebral palsy 4. Probable aspiration PNA; treatment as per PCP Recommendations Convert metoprolol to long acting for HF optimization No ACEi/ARB as due to low-end blood pressure Oral Lasix therapy . Continue K supplementation Follow up in our office with Dr. West as scheduled. PAUL SAL APRN Apr 21, 2020 09:36
[2020-04-21] MEDS: LORazepam 1 MG TABLET PO PRN (11:25)
[2020-04-21 12:40] LABS: CARBON DIOXIDE 44 mmol/L (21-32)
[2020-04-21] MEDS ORDERED: FLUMAZENIL 0.5 MG/5 ML VIAL. IV ONE (12:56)
[2020-04-21 14:44] LABS: BGAS PH 7.35 (7.35-7.46)
[2020-04-21] MEDS ORDERED: MERO1PIG IV (14:50)
[2020-04-21] MEDS ORDERED: LINE600T12 PO (14:50)
[2020-04-21] MEDS ORDERED: METO25TA2 PO (15:11)
[2020-04-21] MEDS ORDERED: FURO-68 PO (15:11)
[2020-04-21] MEDS ORDERED: POTA20TA4 PO (15:11)
--- NOTE | 2020-04-21 15:13 | DISCH ---
HOME HEALTH DISCHARGE/MEDS DISCHARGE INFORMATION: Discharge Date: Apr 21, 2020 Final Diagnosis: Problems Medical Problems: (1) Acute exacerbation of CHF (congestive heart failure) Status: Acute (2) Failure of outpatient treatment Status: Acute (3) History of cerebral palsy Status: Acute (4) Hypoxia Status: Acute Condition on Discharge: Stable CODE STATUS: Code Status: Full HOME HEALTH: Face to Face: I certify this patient is under my care and that I, or a nurse practitioner or physician's admissions assistant working with me, had a face to face encounter that meets the physician face to face encounter requirements with this patient on 04/21/20 Medical Condition(s): CHF, COPD Chcf For: Admin/Educate Injections Physical Therapy For: Evalulation/Treatment Occupational Therapy For: Evaluation/Treatment POST DISCHARGE ORDERS: Activity Instructions for Disc: Activity as tolerated DIET AFTER DISCHARGE: Cardiac CERTIFICATION STATEMENT: Certification Statement: Based on the above finding, I certify that this patient is confined to the home and needs intermittent assisted care, physical therapy and/or speech therapy, or continues to need occupational therapy.~ This patient is under my care, and I have initiated the establishment of the plan of care.~ This patient will be followed by myself or a community physician who will periodically review the plan of care. DISCHARGE MEDICATIONS: Home Meds Active Scripts Metoprolol Succinate (TOPROL XL) 25 Mg Tab.er.24h, 1 TAB PO DAILY for htn for 30 Days, #30 TAB 5 Refills Prov:MARCE LUNA MD 04/21/20 Potassium Chloride (KLOR-CON M20) 20 Meq Tab.er.prt, 1 TAB PO DAILY for replacement for 30 Days, #30 TAB 0 Refills Prov:MARCE LUNA MD 04/21/20 Furosemide (LASIX) 40 Mg Tablet, 1 TAB PO DAILY for chf for 30 Days, #30 TAB 5 Refills Prov:MARCE LUNA MD 04/21/20 Meropenem-0.9% Sodium Chloride (Meropenem-0.9% NaCl 1 Gram/50) 1 Gm/50 Ml Piggyback, 1 GM IV Q8H PRN for spiration pneumonia for 10 Days, EACH Prov:MARCE LUNA MD 04/21/20 Linezolid (ZYVOX) 600 Mg Tablet, 600 MG PO BID for aspiration pneumonia for 10 Days, #20 TAB Prov:MARCE LUNA MD 04/21/20 Reported Medications Magnesium Oxide (MAGNESIUM) 250 Mg Tablet, 250 MG PO DAILY for supplement, TAB 04/14/20 Ascorbic Acid (VITAMIN C) 100 Mg Tablet, 100 MG PO HS for supplement, TAB 04/14/20 Hydrochlorothiazide (Hydrochlorothiazide) 25 Mg Tablet, 25 MG PO DAILY for chf 04/14/20 Fluticasone Propionate (Flonase Allergy Relief) 9.9 Ml [place].susp, 2 SPRAYS NS DAILY for allergies, BOTTLE 02/04/19 Paroxetine Hcl (PAXIL) 20 Mg Tablet, 1 TAB PO DAILY for ., #30 TAB 5 Refills 02/04/19 Fish Oil/Borage/Flax/Om3,6,9#1 ([place] 3-6-9 1,200 mg Softgel) 1,200 Mg Capsule, 1200 MG PO DAILY for ., CAP 02/04/19 Multivitamin (MULTIVITAMINS) 1 Each Tablet, 1 TAB PO DAILY for ., #90 TAB 3 Refills 02/04/19 Clonazepam (KLONOPIN) 0.5 Mg Tablet, 1 TAB PO DAILY for ., #30 TAB 02/04/19 Cranberry Extract (CRANBERRY) 200 Mg Capsule, 200 MG PO DAILY for ., CAP 02/04/19 Discontinued Reported Medications Tizanidine Hcl (ZANAFLEX) 4 Mg Tablet, 4 MG PO BID for ., TAB 02/04/19 Baclofen (BACLOFEN) 20 Mg Tablet, 1 TAB PO BID92 for ., #90 TAB 2 Refills 02/04/19 Zolpidem Tartrate (AMBIEN) 5 Mg Tablet, 10 MG PO PRN QHS PRN for sleep, TAB 0 Refills 02/04/19 MARCE LUNA MD Apr 21, 2020 15:13
--- NOTE | 2020-04-21 16:58 | DS ---
DATE OF DISCHARGE: HOSPITAL COURSE: The patient is a 44-year-old male patient with cerebral palsy, who was admitted through Emergency Room of [facility] on 04/14/2020 with progressive shortness of air. He has cerebral palsy and is nonverbal at baseline. The caregiver stated the past 2 weeks, he has been seen by his primary care physician, started him on 3 different antibiotics for presumed pneumonia. The patient was recently treated with Levaquin which he finished the day before admission. He also saw Cardiology 2 days prior for concern for possible large heart and fluid in his lungs and started on diuretics. The caregiver reports today that he appeared to have increased work of breathing. The patient also subjectively appeared to have fever and was sweating. The caregiver denies known exposure to COVID-19. He was basically extensively investigated as much with acute exacerbation of congestive heart failure, hypoxia and history of cerebral palsy. He was seen by the lace machine operator and he in fact has had an echocardiogram done, which showed that his left ventricular systolic function is mildly diminished with his ejection fraction is 45%. Transmitral Doppler flow pattern is grade 1 abnormal relaxation pattern, trace mitral regurgitation. There is no evidence of significant pericardial effusion. However, while in the hospital, his chest x-ray has continued to worsen and we did a CT scan yesterday of the chest, which showed that the patient is resistant, overall somewhat increased infiltrate and/or edema bilaterally as described most notable of the right upper lobe, severe right lower lobe and left lower lobe. The heart again is enlarged. He has cholelithiasis. There is again appearance of irregularity of the sternum, although finding likely accentuated by significant motion degradation and I did start him yesterday on IV meropenem and vancomycin. We did recommend transferring him to [facility], but his caregiver stated his mother would not accept admitting him to long-term acute care facility. I did blood gases today and it showed that his pH was 7.352, pCO2 of 93, pO2 of 56 and bicarbonate was 51 and his oxygen saturation of 84%. There was some doubt that this could be venous, so we attempted to do it again, but the respiratory therapist could not do the blood gases; however, I explained to his caregiver that even if this is venous, he probably is retaining carbon dioxide and this is not something that might have happened yesterday or the day before, but he probably has some form of obstructive sleep apnea and he might benefit from BiPAP machine or Trilogy machine in the long run. Anyhow, he was treated aggressively with diuretics as well as IV antibiotic in the form of meropenem and initially with vancomycin. He has had a midline placed and the plan was for him to go home with home health to continue treatment with IV meropenem 1 gram IV every 8 hours and Zyvox 600 mg twice a day orally together with all his other medications including metoprolol as well as furosemide and potassium. FINAL DISCHARGE DIAGNOSES: 1. Acute on chronic systolic congestive heart failure, better compensated with IV Lasix. His echocardiogram showed that his left ventricular ejection fraction was 45%. 2. Hypertension. 3. Cerebral palsy. 4. Aspiration pneumonia. 5. Chronic hypoxic hypercapnic respiratory failure, likely due to obstructive sleep apnea. MARCE LUNA MD DR: CYN/ana JOB#: [id number] / [id number]
[2020-04-22] MEDS ORDERED: METOPROLOL SUCC 24HR ER 25 MG TAB.ER.24H. PO SCH (09:00)
== END 2020-04-21 16:05 | disposition home health service (06) | DRG 177 ==
LOC: ER 14:36 → ICU 17:56
PROVIDERS: ADMIT Hospitalist; ATTEND Internal Medicine
DX: J69.0 Pneumonitis due to inhalation of food and vomit (principal); J96.21 Acute and chronic respiratory failure with hypoxia; J96.22 Acute and chronic respiratory failure with hypercapnia; I50.43 Acute on chronic combined systolic (congestive) and diastolic (congestive) heart failure; F73 Profound intellectual disabilities; E87.3 Alkalosis; I11.0 Hypertensive heart disease with heart failure; K80.20 Calculus of gallbladder without cholecystitis without obstruction; G80.8 Other cerebral palsy; Z20.828 Contact with and (suspected) exposure to other viral communicable diseases; G47.33 Obstructive sleep apnea (adult) (pediatric); Z82.49 Family history of ischemic heart disease and other diseases of the circulatory system; Z87.01 Personal history of pneumonia (recurrent); Z74.01 Bed confinement status; Z88.0 Allergy status to penicillin
CPT/HCPCS: 36415; 51702; 71045; 71250; 80048; 80053; 81001; 82553; 82803; 83605; 83880; 84145; 84484; 85007; 85025; 87040; 87086; 93005; 93306; 96374; J1630; J1940; J2185; J3370; J3490; J7040; J7050; 92610; 99291-25; U0003-CS

== ENCOUNTER → 2020-05-03 | Outpatient (CLI) | payer OTHER ==
[2020-04-21 15:50] VITALS: BP 104/64
[~2020-05-03] MED LIST changes: +ASCO100T4 PO; +FURO-68 PO; +HYDR25TA10 PO; +LINE600T12 PO; +MAGN250T10 PO; +MERO1PIG IV; +METO25TA2 PO; +POTA20TA4 PO
--- NOTE | 2020-05-03 17:28 | RAD ---
EXAM: Chest, 2 views. HISTORY: Shortness of breath. COMPARISON: 04/20/2020. FINDINGS: 2 views of the chest are obtained. There is increased mixed interstitial and alveolar infiltrate throughout the right greater than left lung. There may be a small right pleural effusion. There is stable mild elevation of the right hemidiaphragm, likely accentuated due to patient positioning. No pneumothorax is seen. There is a stable enlarged cardiac silhouette. IMPRESSION: Slight interval increase in diffuse infiltrate and possible small right pleural effusion. Electronically signed by: Hilda Horton MD (05/03/2020 5:26 PM) [id number]
== END | disposition home or self-care (01) ==
LOC: RAD 15:55
PROVIDERS: ATTEND Physician Assistant Medical
DX: J69.0 Pneumonitis due to inhalation of food and vomit (principal); J90 Pleural effusion, not elsewhere classified; I51.7 Cardiomegaly
CPT/HCPCS: 71046

== ENCOUNTER → 2020-06-20 | Outpatient (CLI) | payer OTHER ==
[2020-04-21 15:50] VITALS: BP 104/64
[2020-06-20 16:45] LABS: BASO % 0 % (0-3); EOS # 0.2 x10^3/uL (0.0-0.7); EOS % 2 % (0-3); HEMATOCRIT 42.3 % (39.0-53.0); HEMOGLOBIN 13.3 g/dL (13.0-17.5); LYMPH # 3.2 x10^3/uL (1.0-4.8); LYMPH % 27 % (24-48); MEAN CORPUSCULAR HEMOGLOBIN 27 pg (25-35); MEAN CORPUSCULAR HGB CONC 31 g/dL (31-37); MEAN CORPUSCULAR VOLUME 86 fL (79-100); MONO # 1.5 x10^3/uL (0.0-1.1); MONO % 12 % (0-9); NEUT # 7.1 x10^3uL (1.8-7.7); NEUT % 59 % (31-73); PLATELET COUNT 242 x10^3/uL (140-400); RED BLOOD COUNT 4.95 x10^6/uL (4.30-5.70); RED CELL DISTRIBUTION WIDTH 20.1 % (11.5-14.5); WHITE BLOOD COUNT 11.9 x10^3/uL (4.0-11.0)
[2020-06-20 17:01] LABS: CALCIUM 9.9 mg/dL (8.5-10.1); CREATININE 0.7 mg/dL (0.7-1.3); GFR 123.1
[2020-06-20 18:08] LABS: ANISOCYTOSIS MOD; OVALOCYTES OCC; ROULEAUX PRESENT; TEAR DROP CELLS FEW
[2020-06-20 18:27] LABS: PLT ESTIMATE ADEQUATE (ADEQUATE)
== END ==
LOC: LAB 15:39
PROVIDERS: ATTEND Internal Medicine Cardiovascular Disease
DX: I51.89 Other ill-defined heart diseases (principal)
CPT/HCPCS: 36415; 80048; 83880; 85025

== ENCOUNTER → 2020-08-09 | Outpatient (CLI) | payer OTHER ==
[2020-04-21 15:50] VITALS: BP 104/64
--- NOTE | 2020-08-09 14:12 | RAD ---
EXAM: Chest, 2 views. HISTORY: Cough. COMPARISON: 05/03/2020 FINDINGS: 2 views of the chest are obtained. The exam is limited due to combative patient Toby. The re is hypoventilation with vascular crowding and atelectasis. No consolidation, protrusion or pneumot horax is seen. There is a stable cardiac silhouette. IMPRESSION: 1. Limited exam due to combative patient Carrillo. 2. Decreased lung volumes with associated atelectasis and vascular crowding. Electronically signed by: Hilda Horton MD (08/09/2020 2:09 PM) [id number]
== END ==
LOC: DXRAD 13:42
PROVIDERS: ATTEND Internal Medicine Critical Care Medicine
DX: J98.11 Atelectasis (principal); R06.89 Other abnormalities of breathing; R06.02 Shortness of breath
CPT/HCPCS: 71046